=== PATIENT | male | born 1935 | race Caucasian/White ===

== ENCOUNTER 2016-12-08 05:29 | Day surgery (SDC) | payer MEDICARE ==
[2016-12-08] VITALS (19 sets, daily range): BP systolic 100–121; BP diastolic 51–60; PULSE 58–76; RESP 12–16; TEMP 97–98.1; O2SAT 94–100; Ht 193 cm; Wt 82.5 kg
[~2016-12-08] VITALS: Ht 193 cm; Wt 82.5 kg
[~2016-12-08 05:29] MED LIST: ASPI325T PO; CARV3.12 PO; DILT120T PO; MELO-273 PO; MULT-933 PO; NITR0.4T39 SL; OMEP20CA10 PO; SIMV10TA6 PO; TAMS0.4C47 PO; VENL150C2 PO
--- OUTSIDE RECORDS SUMMARY | 2016-12-08 05:32 | XMS REPORT | Continuity of Care Document ---
Author Author [facility] Address Unknown Phone Unavailable Payers Payer name Insurance type Covered republican ID Authorization(s) Unknown Problems Condition Effective Dates (start - stop) Clinical Status Chronic maxillary sinusitis - *Acute Other and unspecified hyperlipidemia - *Chronic Unspecified essential hypertension - *Chronic Depressive disorder, not elsewhere classified - *Chronic Throat pain - *Acute Routine Medical Exam - Routine Sinusitis, Acute - *Acute Headache - *Acute Pain in joint involving multiple sites - *Acute BPH - *Acute Nocturia - *Acute OTHER ABNORMAL GLUCOSE - *Acute Screening for malignant neoplasms of the prostate - *Routine Depressive disorder, not elsewhere classified - *Acute Mixed hyperlipidemia - *Acute Benign essential hypertension - *Chronic OTHER ABNORMAL GLUCOSE - *Acute Routine Medical Exam - *Routine OTHER ABNORMAL GLUCOSE - *Acute Headache - *Acute Pain in joint involving ankle and foot - *Acute H. pylori infection - *Acute Unspecified pruritic disorder - *Acute Syncope and collapse - *Acute Dysuria - *Acute Routine general medical examination at a health care facility - *Routine Pain in joint involving lower leg - *Acute Other and unspecified hyperlipidemia - *Acute Pain in joint involving multiple sites - *Acute Screening for malignant neoplasms of the prostate - *Routine NEED FOR PROPHYLACTIC VACCINATION AND INOCULATION, OTHER VIRAL DISEASES - Abrasion or friction burn of foot and toe(s), without mention of infection Dec - *Acute Contusion of toe - *Acute Sleep Apnea - *Acute Cervicalgia - *Acute Laceration - *Acute Open wound of foot except toe(s) alone, without mention of complication - *Acute Pain in joint involving lower leg - *Acute Dizziness - *Acute Influenza Vaccine - *Routine Knee injury - *Acute Acute maxillary sinusitis - *Acute Headache - *Acute Unspecified disorder of male genital organs - *Acute Regional enteritis of unspecified site - *Acute Sprain and strain of unspecified site of hip and t - *Acute Influenza Vaccine - Headache - *Acute Nonspecific abnormal results of function study of thyroid - * Acute Headache - *Acute Pain in joint involving lower leg - *Acute Abdominal pain, right lower quadrant - *Acute NEED FOR PROPHYLACTIC VACCINATION WITH COMBINED [id number] ( DTP) (DTAP) VACCINE - - Family History Family Member Diagnosis Age At Onset Status Family h/o (Unknown) Arthritis Yes Family h/o (Unknown) Diabetes Yes Sister (Alive) Cancer -colon Yes Family h/o (Unknown) Alzheimer's Disease Yes Social History Social History Element Description Quantity Unknown Allergies, Adverse Reactions, Alerts Substance Reaction Severity Status SULFANILAMIDE Unknown Medications Medication Instructions Dosage Effective Dates (start - stop) Status Zithromax Z-Andrew 250 mg tablet take 2 tablet (500MG) by ORAL route every day for 1 day then 1 tablet (250 mg) by oral route once daily for 4 days 500 MG - No Longer Active Cartia XT 120 mg capsule,extended release take 1 capsule (120MG) by ORAL route every day 120 MG - Active aspirin 325 mg tablet take 1 by Oral route every other day. 0 - Active take 1 tablet by ORAL route every day with food 0 - Active VITAMIN A (unknown strength) take 1 capsule by ORAL route every day - Active VITAMIN C (unknown strength) take 6 by Oral route every day - Active Vitamin B Complex tablet take 1 Tablet by Oral route every day 0 2008 - Active SAW PALMETTO (unknown strength) - Active Anusol-HC 2.5 % rectal cream apply by TOPICAL route 1 - 2 times every day to the affected area(s) 0 - Active promethazine-codeine 6.25 mg-10 mg/5 mL syrup 5-10 cc q 6 hours poprn cough - Active omeprazole 20 mg capsule,delayed release take 2 caps daily - Active Effexor XR 150 mg capsule,extended release take 1 capsule (150MG) by ORAL route every day 150 MG - Active simvastatin 20 mg tablet take 1 tablet (20MG) by ORAL route every day in the evening 20 MG - Active Flomax 0.4 mg capsule take 1 capsule (0.4MG) by ORAL route every day at bedtime 0.4 MG - Active Immunizations Vaccine Date Status Comments Zoster completed Fluzone HD 0.5 completed Flu (split) (3 yrs or older) completed flu (split) (3 yrs or older) completed Tdap completed flu (split) (3 yrs or older) completed Zoster completed Results Test Name Date and Time Measure Units Reference Range Abnormal Flag Comments Unknown Vital Signs Date / Time: Height Weight Pulse Rate Blood Pressure Temperature /15:01:00 76.00 in 189.00 lbs 65 /min 130/74 mm[Hg] 97.5 F Procedures Procedure Date Unknown Encounters Encounter Location Date Patient Visit [facility] Patient Visit [facility] Patient Visit [facility] Patient Visit [facility] Patient Visit [facility] Patient Visit [facility] Patient Visit [facility] Patient Visit [facility] Patient [facility] Patient [facility] Patient [facility] Patient [facility] Patient [facility] Patient [facility] Patient [facility] Patient [facility] Patient [facility] Patient [facility] Patient [facility] Patient [facility] Patient [facility] Patient [facility] Patient [facility] Patient [facility] Patient [facility] Patient [facility] Patient Visit [facility] Patient Visit [facility] Patient Visit [facility] Patient Visit [facility] Advance Directives Directive Effective Date Unknown
--- OUTSIDE RECORDS SUMMARY | 2016-12-08 05:32 | XMS REPORT | Referral Summary ---
Author Author [facility] Organization [facility] Address Unknown Phone Unavailable Care Team Providers Care Sales Advisory Manager Name Role Phone Rayray Bruno Primary Care Physician [phone] Encounter VC Date(s): 03/29/16 - 03/29/16 [facility] [address], [place] [address] Discharge Disposition: 01-Home or Self Care Attending Physician: Cesar Bruno MD Admitting Physician: Cesar Bruno MD Vital Signs Most recent to 1 oldest [Reference Range]: Peripheral Pulse 80 bpm Rate [60-100 bpm] (03/29/16 1:38 PM) Blood Pressure 100/50 mmHg [90-140/60-90 mmHg] (03/29/16 1:38 PM) SpO2 98 % (03/29/16 1:38 PM) Problem List Condition Effective Dates Status Health Status Informant Arthritis(Confirmed) Active 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) Depression(Confirmed Active ) Dysrhythmias(Confirm Active ed) Essential Active hypertension (disorder)(Confirmed ) GERD(Confirmed) Active Hyperlipidemia(Confi Active rmed) Hypertension(Confirm Active ed) Irritable bowel Active syndrome(Confirmed) Sarcoidosis(Confirme Active d) Skin Active cancer(Confirmed) TMJ Active syndrome(Confirmed) WPW(Confirmed) Active Allergies, Adverse Reactions, Alerts Substance Reaction Severity Status sulfamethoxazole Adverse Reaction Active sulfanilamide topical Active Medications Cartia XT 240 mg/24 hours oral capsule, extended release 0 Refill(s) Start Date: 04/16/14 Status: Ordered Mobic 7.5 mg oral tablet 7.5 mg 1 tabs, Oral, Daily, # 30 tabs, 2 Refill(s), called to pharmacy (Rx), 1 tabs Oral Daily Start Date: 01/20/16 Status: Ordered Nitrostat 0.4 mg sublingual tablet 1 tabs, SubLingual, q5min, as needed for chest pain, # 100 tabs, 0 Refill(s) Start Date: 04/16/14 Status: Ordered omeprazole 20 mg oral delayed release tablet 40 mg 2 tabs, Oral, Daily, X 90 days, # 180 tabs, 3 Refill(s), Pharmacy: [facility], 2 tabs Oral Daily,x90 days Start Date: 08/13/15 Stop Date: 08/07/16 Status: Ordered tamsulosin 0.4 mg oral capsule See Instructions, TAKE ONE CAPSULE BY MOUTH AT BEDTIME, # 90 Each, 3 Refill(s), Pharmacy: [facility], TAKE ONE CAPSULE BY MOUTH AT BEDTIME Start Date: 08/13/15 Status: Ordered venlafaxine 150 mg oral tablet, extended release 150 mg 1 tabs, Oral, Daily, # 30 tabs, 0 Refill(s), Pharmacy: [facility], 1 tabs Oral Daily Start Date: 01/16/16 Status: Ordered Zocor 20 mg oral tablet See Instructions, TAKE 1 TABLET BY MOUTH EVERY DAY IN THE EVENING, # 90 Each, 3 Refill(s), Pharmacy: [facility], TAKE 1 TABLET BY MOUTH EVERY DAY IN THE EVENING Start Date: 08/13/15 Status: Ordered Results No data available for this section Immunizations Vaccine Date Refusal Reason tetanus/diphth/pertuss (Tdap) adult/adol 07/23/11 influenza virus vaccine, inactivated 06/12/15 influenza virus vaccine, inactivated1 07/01/14 influenza virus vaccine, live 07/11/13 influenza virus vaccine, live 06/28/12 influenza virus vaccine, live 07/23/11 influenza virus vaccine, live 06/05/10 zoster vaccine live 08/27/10 zoster vaccine live 02/04/09 1Result Comment: [07/01/2014] see scanned document, high dose Procedures Procedure Date Related Diagnosis Body Site Colonoscopy 04/26/11 Partial thyroidectomy 1975 Social History Social History Type Response Smoking Status Never smoker Assessment and Plan Extracted from: Title: Ambulatory Patient Education Author: Mitzi Johnson Date: [id number] Shingles Shingles is an infection that causes a painful skin rash and fluid-filled blisters. Shingles is caused by the same virus that causes chickenpox. Shingles only develops in people who: Have had chickenpox. Have gotten the chickenpox vaccine. (This is rare.) The first symptoms of shingles may be itching, tingling, or pain in an area on your skin. A rash will follow in a few days or weeks. The rash is usually on one side of the body in a bandlike or beltlike pattern. Over time, the rash turns into fluid-filled blisters that break open, scab over, and dry up. Medicines may: Help you manage pain. Help you recover more quickly. Help to prevent long-term problems. HOME CARE Medicines Take medicines only as told by your doctor. Apply an anti-itch or numbing cream to the affected area as told by your doctor. Blister and Rash Care Take a cool bath or put cool compresses on the area of the rash or blisters as told by your doctor. This may help with pain and itching. Keep your rash covered with a loose bandage (dressing). Wear loose- fitting clothing. Keep your rash and blisters clean with mild soap and cool water or as told by your doctor. Check your rash every day for signs of infection. These include redness, swelling, and pain that lasts or gets worse. Do not pick your blisters. Do not scratch your rash. General Instructions Rest as told by your doctor. Keep all follow-up visits as told by your doctor. This is important. Until your blisters scab over, your infection can cause chickenpox in people who have never had it or been vaccinated against it. To prevent this from happening, avoid touching other people or being around other people, especially: Babies. women. Children who have eczema. Elderly people who have transplants. People who have chronic illnesses, such as leukemia or AIDS. GET HELP IF: Your pain does not get better with medicine. Your pain does not get better after the rash heals. Your rash looks infected. Signs of infection include: Redness. Swelling. Pain that lasts or gets worse. GET HELP RIGHT AWAY IF: The rash is on your face or nose. You have pain in your face, pain around your eye area, or loss of feeling on one side of your face. You have ear pain or you have ringing in your ear. You have loss of taste. Your condition gets worse. This information is not intended to replace advice given to you by your health care provider. Make sure you discuss any questions you have with your health care provider. Document Released: 02/07/2009 Document Revised: 09/12/2015 Document Reviewed: [facility] Patient Information 2016 [employer], [facility]. No follow up information was provided.
--- OUTSIDE RECORDS SUMMARY | 2016-12-08 05:32 | XMS REPORT | Referral Summary ---
Author Author [facility] Organization [facility] Address Unknown Phone Unavailable Care Team Providers Care Manufacturing Helper Name Role Phone Rayray Bruno Primary Care Physician [phone] Encounter VC Date(s): 01/28/15 - 01/28/15 [facility] [address] [address]- Discharge Diagnosis: Hemorrhoid Discharge Diagnosis: Lump of right wrist Discharge Disposition: 01-Home or Self Care Attending Physician: Cesar Bruno MD Admitting Physician: Cesar Bruno MD Vital Signs Most recent to 1 oldest [Reference Range]: Peripheral Pulse 69 bpm Rate [60-100 bpm] (01/28/15 3:33 PM) Blood Pressure 100/70 mmHg [90-140/60-90 mmHg] (01/28/15 3:33 PM) SpO2 98 % (01/28/15 3:33 PM) Problem List Condition Effective Dates Status [...] Adverse Reaction Active sulfanilamide topical Active Medications betamethasone valerate 0.1% topical cream 1 bianca, Topical, BID, # 90 g, 2 Refill(s), Pharmacy: [facility] [id number] Start Date: 04/17/14 Stop Date: 07/16/19 Status: Ordered Cartia XT 240 mg/24 hours oral capsule, extended release 0 Refill(s) Start Date: 04/16/14 Status: Ordered Nitrostat 0.4 mg sublingual tablet 1 tabs, SubLingual, q5min, as needed for chest pain, # 100 tabs, 0 Refill(s) Start Date: 04/16/14 Status: Ordered omeprazole 20 mg oral delayed release tablet 40 mg 2 tabs, Oral, Daily, # 180 tabs, 11 Refill(s), Pharmacy: [facility]/pharmacy # [id number], 2 tabs Oral Daily Start Date: 06/02/15 Status: Ordered tamsulosin 0.4 mg oral capsule See Instructions, TAKE ONE CAPSULE BY MOUTH AT BEDTIME, # 30 caps, 5 Refill(s), eRx: [facility]/pharmacy #[id number], TAKE ONE CAPSULE BY MOUTH AT BEDTIME Start Date: 07/28/15 Status: Ordered venlafaxine 150 mg oral capsule, extended release See Instructions, TAKE ONE CAPSULE BY MOUTH EVERY DAY, # 90 caps, 2 Refill(s), eRx: [facility]/pharmacy #[id number], TAKE ONE CAPSULE BY MOUTH EVERY DAY Start Date: 05/14/15 Status: Ordered Zocor 20 mg oral tablet See Instructions, TAKE 1 TABLET BY MOUTH EVERY DAY IN THE EVENING, # 90 tabs, 2 Refill(s), eRx: [facility]/pharmacy #[id number], TAKE 1 TABLET BY MOUTH EVERY DAY IN THE EVENING Start Date: 04/30/15 Status: Ordered Results No data available for [...] Procedures Procedure Date Related Diagnosis Body Site Partial thyroidectomy 1975 Social History Social History Type Response Smoking Status Never smoker Assessment and Plan Extracted from: Title: Office Visit Note Author: Cesar Bruno MD Date: 01/28/15 Assessment/Plan 1.Hemorrhoid 2.Lump of right wrist no action needed beyond continuing on current plan
--- OUTSIDE RECORDS SUMMARY | 2016-12-08 05:32 | XMS REPORT | Referral Summary ---
Author Organization Unknown Address Unknown Phone Unavailable Care Team Providers Care Tour Production Supervisor Name Role Phone Rayray Bruno Primary Care Physician [phone] Encounter VC Date(s): 10/17/14 - 10/17/14 [facility], [facility], [facility], PT [address], [place] [address] Discharge Disposition: Home or Self Care Attending Physician: Harsh Rome PT Admitting Physician: Harsh Rome PT Referring Physician: Cesar Bruno MD Vital Signs No data available for this section Problem List Condition Effective Dates Status Health [...] BID, # 90 g, 2 Refill(s), Pharmacy: [facility] [id number] Start Date: 04/17/14 Stop Date: 07/16/19 Status: Ordered Cartia XT 240 mg/24 hours oral capsule, extended release 0 Refill(s) Start Date: 04/16/14 Status: Ordered Nitrostat 0.4 mg sublingual tablet 1 tabs, SubLingual, q5min, as needed for chest pain, # 100 tabs, 0 Refill(s) Start Date: 04/16/14 Status: Ordered omeprazole 20 mg oral delayed release capsule 2 caps, Oral, Daily, # 180 caps, 0 Refill(s), Pharmacy: [facility]/pharmacy #[id number], 2 caps Oral Daily Start Date: 09/16/14 Status: Ordered Proctosol-HC 2.5% rectal cream with applicator 1 bianca, Rectal, BID, # 30 g, 3 Refill(s), Pharmacy: [id number] Start Date: 04/17/14 Stop Date: 07/16/19 Status: Ordered Promethazine VC 6.25 mg-5 mg/5 mL oral syrup 5 mL, Oral, q6hr, # 120 mL, 0 Refill(s), called to pharmacy (Rx) Start Date: 07/26/14 Status: Ordered Promethazine VC with Codeine oral syrup 5 mL, Oral, q6hr, as needed for cough, Called in the pharmacy on 09-02-14, # 120 mL, 0 Refill(s) Special Instructions: Called in the pharmacy on 09-02-14 Start Date: 09/02/14 Stop Date: 08/16/15 Status: Ordered simvastatin 20 mg oral tablet 0 Refill(s) Start Date: 04/16/14 Status: Ordered tamsulosin 0.4 mg oral capsule 0 Refill(s) Start Date: 04/16/14 Status: Ordered venlafaxine 150 mg oral capsule, extended release 1 caps, Oral, Daily, # 90 caps, 0 Refill(s), [id number], 1 caps Oral Daily Start Date: 09/16/14 Status: Ordered Results No data available for this section Immunizations Vaccine Date Refusal Reason tetanus/diphth/pertuss (Tdap) adult/adol 07/23/11 influenza virus vaccine, inactivated1 07/01/14 influenza virus vaccine, live 07/11/13 influenza virus vaccine, live 06/28/12 influenza virus vaccine, live 07/23/11 influenza virus vaccine, live 06/05/10 zoster vaccine live 08/27/10 zoster vaccine live 02/04/09 1Result Comment: [07/01/2014] see scanned document, high dose Procedures Procedure Date Related Diagnosis Body Site Partial thyroidectomy 1976 Social History Social History Type Response Smoking Status Never smoker Assessment and Plan No data available for this section
--- OUTSIDE RECORDS SUMMARY | 2016-12-08 05:33 | XMS REPORT | Referral Summary ---
Author Author [facility] Organization [facility] Address Unknown Phone Unavailable Care Team Providers Care Professor Of Vegetable Science Name Role Phone Rayray Bruno Primary Care Physician [phone] Encounter VC Date(s): 06/12/15 - 06/12/15 [facility] [address] [address] Discharge Diagnosis: Visit for wound care Discharge Diagnosis: Visit for suture removal Discharge Disposition: 01-Home or Self Care Attending Physician: Cesar Bruno MD Admitting Physician: Cesar Bruno MD Vital Signs Most recent to 1 oldest [Reference Range]: Peripheral Pulse 73 bpm Rate [60-100 bpm] (06/12/15 10:48 AM) Blood Pressure 118/80 mmHg [90-140/60-90 mmHg] (06/12/15 10:48 AM) SpO2 96 % (06/12/15 10:48 AM) Problem List Condition Effective Dates Status Health [...] BID, # 90 g, 2 Refill(s), Pharmacy: [id number] Start Date: 04/17/14 Stop Date: 11/11/19 Status: Ordered Cartia XT 240 mg/24 hours oral capsule, extended release 0 Refill(s) Start Date: 04/16/14 Status: Ordered Nitrostat 0.4 mg sublingual tablet 1 tabs, SubLingual, q5min, as needed for chest pain, # 100 tabs, 0 Refill(s) Start Date: 04/16/14 Status: Ordered omeprazole 20 mg oral delayed release tablet 40 mg 2 tabs, Oral, Daily, # 180 tabs, 11 Refill(s), Pharmacy: [facility]/pharmacy # [id number], 2 tabs Oral Daily Start Date: 06/02/15 Status: Ordered tamsulosin 0.4 mg oral capsule See Instructions, TAKE ONE CAPSULE BY MOUTH AT BEDTIME, # 30 caps, 2 Refill(s), eRx: [facility]/pharmacy #[id number], TAKE ONE CAPSULE BY MOUTH AT BEDTIME Start Date: 05/01/15 Status: Ordered venlafaxine 150 mg oral capsule, extended release See Instructions, TAKE ONE CAPSULE BY MOUTH EVERY DAY, # 90 caps, 2 Refill(s), eRx: [facility]/pharmacy #[id number], TAKE ONE CAPSULE BY MOUTH EVERY DAY Start Date: 05/14/15 Status: Ordered Zocor 20 mg oral tablet See Instructions, TAKE 1 TABLET BY MOUTH EVERY DAY IN THE EVENING, # 90 tabs, 2 Refill(s), eRx: [facility]/pharmacy #[id number], TAKE 1 TABLET BY MOUTH EVERY DAY [...] Extracted from: Title: Ambulatory Patient Education Author: Cesar Bruno MD Date: 06/12/15 Family Medicine Wound Care Wound care helps prevent pain and infection. You may need a tetanus shot if: You cannot remember when you had your last tetanus shot. You have never had a tetanus shot. The injury broke your skin. If you need a tetanus shot and you choose not to have one, you may get tetanus. Sickness from tetanus can be serious. HOME CARE Only take medicine as told by your doctor. Clean the wound daily with mild soap and water. Change any bandages (dressings) as told by your doctor. Put medicated cream and a bandage on the wound as told by your doctor. Change the bandage if it gets wet, dirty, or starts to smell. Take showers. Do not take baths, swim, or do anything that puts your wound under water. Rest and raise (elevate) the wound until the pain and puffiness (swelling) are better. Keep all doctor visits as told. GET HELP RIGHT AWAY IF: Yellowish-white fluid (pus) comes from the wound. Medicine does not lessen your pain. There is a red streak going away from the wound. You have a fever. MAKE SURE YOU: Understand these instructions. Will watch your condition. Will get help right away if you are not doing well or get worse. Document Released: 05/31/2009 Document Revised: 11/13/2012 Document Reviewed: [employer] Patient Information 2015 [employer]. This information is not intended to replace advice given to you by your health care provider. Make sure you discuss any questions you have with your health care provider. No follow up information was provided. Extracted from: Title: Office Visit Note Author: Cesar Bruno MD Date: 06/12/15 Assessment/Plan 1.Visit for wound care stitches were removed and steri strips were placed a gauze wrap was applied he will follow up in 1 week. Need for influenza vaccination 65 influenza vaccine was given today Ordered: influenza virus vaccine, inactivated, 0.5 mL, IntraMuscular, Once, First Dose: 06/12/15 11:10:00 CDT, Stop Date: 06/12/15 11:10:00 CDT
--- OUTSIDE RECORDS SUMMARY | 2016-12-08 05:33 | XMS REPORT | Referral Summary ---
Author Author [facility] Organization [facility] Address Unknown Phone Unavailable Care Team Providers Care Collateral Analyst Name Role Phone Rayray Bruno Primary Care Physician [phone] Encounter VC Date(s): 06/03/15 - 06/03/15 [facility] [address] [address]- Discharge Diagnosis: Skin cyst Discharge Disposition: 01-Home or Self Care Attending Physician: Cesar Bruno MD Admitting Physician: Cesar Bruno MD Vital Signs Most recent to 1 oldest [Reference Range]: Peripheral Pulse 76 bpm Rate [60-100 bpm] (06/03/15 1:38 PM) Blood Pressure 110/70 mmHg [90-140/60-90 mmHg] (06/03/15 1:38 PM) Problem List Condition Effective Dates [...] BID, # 90 g, 2 Refill(s), Pharmacy: [facility] [id number] Start Date: 04/17/14 Stop Date: 07/16/19 Status: [...] Daily, # 180 tabs, 11 Refill(s), Pharmacy: [facility]/pharmacy # [id number], 2 tabs Oral Daily Start Date: 06/02/15 Status: Ordered tamsulosin 0.4 mg oral capsule See Instructions, TAKE ONE CAPSULE BY MOUTH AT BEDTIME, # 30 caps, 2 Refill(s), eRx: [facility]/pharmacy #[id number], TAKE ONE CAPSULE BY MOUTH AT BEDTIME Start Date: 05/01/15 Status: Ordered venlafaxine 150 mg oral capsule, extended release See Instructions, TAKE ONE CAPSULE BY MOUTH EVERY DAY, # 90 caps, 2 Refill(s), eRx: [facility]/pharmacy #[id number], TAKE ONE CAPSULE BY MOUTH EVERY DAY Start Date: 05/14/15 Status: Ordered Zocor 20 mg oral tablet See Instructions, TAKE 1 TABLET BY MOUTH EVERY DAY IN THE EVENING, # 90 tabs, 2 Refill(s), eRx: [facility]/pharmacy #[id number], TAKE 1 TABLET BY MOUTH EVERY DAY [...]
--- OUTSIDE RECORDS SUMMARY | 2016-12-08 05:33 | XMS REPORT | Referral Summary ---
Author Author [facility] Organization [facility] Address Unknown Phone Unavailable Care Team Providers Care Applications Processor Name Role Phone Rayray Bruno Primary Care Physician [phone] Encounter VC Date(s): 06/03/15 - 06/03/15 [facility] [address] [address]- Discharge Diagnosis: Skin cyst Discharge Disposition: 01-Home [...] Oral, Daily, # 30 tabs, 2 Refill(s), Pharmacy: [facility], 1 tabs Oral Daily Start Date: 10/17/15 Status: Ordered Nitrostat 0.4 mg sublingual tablet 1 tabs, SubLingual, q5min, as needed for chest pain, # 100 tabs, 0 Refill(s) Start Date: 04/16/14 Status: Ordered omeprazole 20 mg oral delayed release tablet 40 mg 2 tabs, Oral, Daily, X 90 days, # 180 tabs, 3 Refill(s), Pharmacy: [facility], 2 tabs Oral Daily,x90 days Start Date: 08/13/15 Stop Date: 08/07/16 Status: Ordered tamsulosin 0.4 mg oral capsule See Instructions, TAKE ONE CAPSULE BY MOUTH AT BEDTIME, # 90 Each, 3 Refill(s), Pharmacy: [facility], TAKE ONE CAPSULE BY MOUTH AT BEDTIME Start Date: 08/13/15 Status: Ordered venlafaxine 150 mg oral capsule, extended release See Instructions, TAKE ONE CAPSULE BY MOUTH EVERY DAY, # 90 Each, 3 Refill(s), Pharmacy: [facility], TAKE ONE CAPSULE BY MOUTH EVERY DAY Start Date: 08/13/15 Status: Ordered Zocor 20 mg oral tablet See Instructions, TAKE 1 TABLET BY MOUTH EVERY DAY IN THE EVENING, # 90 Each, 3 Refill(s), Pharmacy: [facility], TAKE 1 TABLET BY [...] Procedures Procedure Date Related Diagnosis Body Site Excision, benign lesion including margins, 06/03/15 except skin tag (unless listed elsewhere), trunk, arms or legs; excised diameter 0.5 cm or less Excision, benign lesion including margins, 06/03/15 except skin tag (unless listed elsewhere), trunk, arms or legs; excised diameter 0.5 cm or less Excision, benign lesion including margins, 06/03/15 except skin tag (unless listed elsewhere), trunk, arms or legs; excised diameter 0.5 cm or less Partial thyroidectomy 1976 Social History Social History Type Response Smoking Status Never smoker Assessment and Plan Extracted from: Title: Ambulatory Patient Education Author: Mitzi Johnson MA Date: Family [facility] Epidermal Cyst An epidermal cyst is usually a small, painless lump under the skin. Cysts often occur on the face, neck, stomach, chest, or genitals. The cyst may be filled with a bad smelling paste. Do not pop your cyst. Popping the cyst can cause pain and puffiness (swelling). HOME CARE Only take medicines as told by your doctor. Take your medicine (antibiotics) as told. Finish it even if you start to feel better. GET HELP RIGHT AWAY IF: Your cyst is tender, red, or puffy. You are not getting better, or you are getting worse. You have any questions or concerns. MAKE SURE YOU: Understand these instructions. Will watch your condition. Will get help right away if you are not doing well or get worse. Document Released: 09/29/2005 Document Revised: 02/20/2013 Document Reviewed: ExitCare Patient Information 2015 [place]. This information is not intended to replace advice given to you by your health care provider. Make sure you discuss any questions you have with your health care provider. No follow up information was provided. Extracted from: Title: Office Visit Note Author: Cesar Bruno MD Date: 06/03/15 Assessment/Plan 1.Skin cyst the area was cleaned with hibiclens and the area draped with sterile towels. 1 % lidocaine was injected into the area and 15 blade scalpel was used to make the 4cm incision. Blunt and sharp dissection was carried out until the cyst was isolated.The cyst was completely excised and cautery used to stop bleeding. the superior aspect of the wound continued to bleed despite cautery and pressure. a 40 nylon suture was placed through the skin and SC tissue and this eventually limited bleeding to a minimal amount . . 5more 4/0 nylon sutureswere placed to close the wound, 3 were vertical mattress and 2 simple. A bandage was used to wrap the area after dressing with mupirocin and telfa .He will return in in 9 days to have sutures removed.he wll call if any bleeding, development of hematoma or signs of infection Cyst was sent to pathology
--- OUTSIDE RECORDS SUMMARY | 2016-12-08 05:33 | XMS REPORT | Referral Summary ---
Author Author [facility] Organization [facility] Address Unknown Phone Unavailable Care Team Providers Care Tenter Frame Operator Name Role Phone Rayray Bruno Primary Care Physician [phone] Encounter VC Date(s): 01/27/16 - 01/27/16 [facility] [address], [place] [address] Discharge Disposition: 01-Home or Self Care Attending Physician: Cesar Bruno MD Admitting Physician: Cesar Bruno MD Vital Signs Most recent to 1 oldest [Reference Range]: Peripheral Pulse 79 bpm Rate [60-100 bpm] (01/27/16 9:15 AM) Blood Pressure 106/68 mmHg [90-140/60-90 mmHg] (01/27/16 9:15 AM) Mean Arterial 81 mmHg Pressure, Cuff (01/27/16 9:15 AM) SpO2 100 % (01/27/16 9:15 AM) Problem List Condition Effective Dates Status [...] days, # 180 tabs, 3 Refill(s), Pharmacy: [facility], 2 tabs Oral Daily,x90 days Start Date: 08/13/15 Stop Date: 08/07/16 Status: Ordered tamsulosin 0.4 mg oral capsule See Instructions, TAKE ONE CAPSULE BY MOUTH AT BEDTIME, # 90 Each, 3 Refill(s), Pharmacy: [facility], TAKE ONE CAPSULE BY MOUTH AT BEDTIME Start Date: 08/13/15 Status: Ordered venlafaxine 150 mg oral tablet, extended release 150 mg 1 tabs, Oral, Daily, # 30 tabs, 0 Refill(s), Pharmacy: [facility] [id number], 1 tabs Oral Daily Start Date: 01/16/16 Status: Ordered Zocor 20 mg oral tablet See Instructions, TAKE 1 TABLET BY MOUTH EVERY DAY IN THE EVENING, # 90 Each, 3 Refill(s), Pharmacy: [facility], TAKE 1 TABLET BY MOUTH [...] Extracted from: Title: Ambulatory Patient Education Author: Cierra Benton MA Date: Family Medicine Benign Positional Vertigo Vertigo means you feel like you or your surroundings are moving when they are not. Benign positional vertigo is the most common form of vertigo. Benign means that the cause of your condition is not serious. Benign positional vertigo is more common in older adults. CAUSES Benign positional vertigo is the result of an upset in the labyrinth system. This is an area in the middle ear that helps control your balance. This may be caused by a viral infection, head injury, or repetitive motion. However, often no specific cause is found. SYMPTOMS Symptoms of benign positional vertigo occur when you move your head or eyes in different directions. Some of the symptoms may include: Loss of balance and falls. Vomiting. Blurred vision. Dizziness. Nausea. Involuntary eye movements (nystagmus). DIAGNOSIS Benign positional vertigo is usually diagnosed by physical exam. If the specific cause of your benign positional vertigo is unknown, your caregiver may perform imaging tests, such as magnetic resonance imaging (MRI) or computed tomography (CT). TREATMENT Your caregiver may recommend movements or procedures to correct the benign positional vertigo. Medicines such as meclizine, benzodiazepines, and medicines for nausea may be used to treat your symptoms. In rare cases, if your symptoms are caused by certain conditions that affect the inner ear, you may need surgery. HOME CARE INSTRUCTIONS Follow your caregiver's instructions. Move slowly. Do not make sudden body or head movements. Avoid driving. Avoid operating heavy machinery. Avoid performing any tasks that would be dangerous to you or others during a vertigo episode. Drink enough fluids to keep your urine clear or pale yellow. SEEK IMMEDIATE MEDICAL CARE IF: You develop problems with walking, weakness, numbness, or using your arms , hands, or legs. You have difficulty speaking. You develop severe headaches. Your nausea or vomiting continues or gets worse. You develop visual changes. Your family or friends notice any behavioral changes. Your condition gets worse. You have a fever. You develop a stiff neck or sensitivity to light. MAKE SURE YOU: Understand these instructions. Will watch your condition. Will get help right away if you are not doing well or get worse. This information is not intended to replace advice given to you by your health care provider. Make sure you discuss any questions you have with your health care provider. Document Released: 05/30/2007 Document Revised: 11/13/2012 Document Reviewed: ExitCare Patient Information 2015 ExitCare, [facility]. No follow up information was provided. 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 Dupuytren contracture (KIM24-LT M72.0, Working, Medical). Plan: Pt to do exercises to challenge Benign Positional Vertigo, while in a safe position. Discussed information and pt given educational material concerning this condition. Pt advised to limit activities for 3-[address] til condition improves. Pt to practice golf swings in his yard tomorrow. If condition does not improve, F/U in next week. . Patient Instructions: Benign Positional Vertigo. Orders Orders (Selected) Outpatient Orders Ordered Office Visit Level 3 Est [address]: .
--- OUTSIDE RECORDS SUMMARY | 2016-12-08 05:33 | XMS REPORT | Referral Summary ---
Author Author [facility] Organization [facility] Address Unknown Phone Unavailable Care Team Providers Care Joist Setter Name Role Phone Rayray Bruno Primary Care Physician [phone] Encounter VC Date(s): 04/24/15 - 04/24/15 [facility] [address] [address]- Discharge Diagnosis: Shoulder pain Discharge Diagnosis: Stiff neck Discharge Diagnosis: Skin lesion Discharge Disposition: 01-Home or Self Care Attending Physician: Cesar Bruno MD Admitting Physician: Cesar Bruno MD Vital Signs Most recent to 1 oldest [Reference Range]: Peripheral Pulse 63 bpm Rate [60-100 bpm] (04/24/15 3:48 PM) Blood Pressure 100/60 mmHg [90-140/60-90 mmHg] (04/24/15 3:48 PM) SpO2 98 % (04/24/15 3:48 PM) Problem List Condition Effective Dates Status [...] Daily, # 30 tabs, 2 Refill(s), Pharmacy: [facility], 1 tabs Oral Daily Start Date: 10/17/15 Status: Ordered Nitrostat 0.4 mg sublingual tablet 1 tabs, SubLingual, q5min, as needed for chest pain, # 100 tabs, 0 Refill(s) Start Date: 04/16/14 Status: Ordered omeprazole 20 mg oral delayed release tablet 40 mg 2 tabs, Oral, Daily, X 90 days, # 180 tabs, 3 Refill(s), Pharmacy: [facility], 2 tabs Oral Daily,x90 days Start Date: 08/13/15 Stop Date: 08/07/16 Status: Ordered tamsulosin 0.4 mg oral capsule See Instructions, TAKE ONE CAPSULE BY MOUTH AT BEDTIME, # 90 Each, 3 Refill(s), Pharmacy: [facility], TAKE ONE CAPSULE BY MOUTH AT BEDTIME Start Date: 08/13/15 Status: Ordered venlafaxine 150 mg oral capsule, extended release See Instructions, TAKE ONE CAPSULE BY MOUTH EVERY DAY, # 90 Each, 3 Refill(s), Pharmacy: [facility], TAKE ONE CAPSULE BY MOUTH EVERY DAY Start Date: 08/13/15 Status: Ordered Zithromax Z-Andrew 250 mg oral tablet 1 packets, Oral, Daily, as directed on package labeling, X 5 days, # 6 tabs, 0 Refill(s), Pharmacy: [id number], 1 packets Oral Daily,x5 days, Instr:as directed on package labeling Start Date: 10/31/15 Stop Date: 11/05/15 Status: Ordered Zocor 20 mg oral tablet See Instructions, TAKE 1 TABLET BY MOUTH EVERY DAY IN THE EVENING, # 90 Each, 3 Refill(s), Pharmacy: [facility], TAKE 1 TABLET [...] Visit Note Author: Cesar Bruno MD Date: 04/24/15 Assessment/Plan 1.Shoulder pain he will apply heat to both shoulder and neck and continue to do range of motion 2.Skin lesion he will make a appt to come back and get the cyst removed in the near future
--- OUTSIDE RECORDS SUMMARY | 2016-12-08 05:33 | XMS REPORT | Referral Summary ---
Author Author [facility] Organization [facility] Address Unknown Phone Unavailable Care Team Providers Care Staff Air Tactical Officer Name Role Phone Rayray Bruno Primary Care Physician [phone] Encounter Date(s): 06/12/15 - 06/12/15 [facility] [address], [place] [address] Discharge Diagnosis: Visit for wound care Discharge [...] Daily, # 30 tabs, 2 Refill(s), Pharmacy: [facility], 1 tabs Oral Daily Start Date: 10/17/15 Status: Ordered Nitrostat 0.4 mg sublingual tablet 1 tabs, SubLingual, q5min, as needed for chest pain, # 100 tabs, 0 Refill(s) Start Date: 04/16/14 Status: Ordered omeprazole 20 mg oral delayed release tablet 40 mg 2 tabs, Oral, Daily, X 90 days, # 180 tabs, 3 Refill(s), [facility], 2 tabs Oral Daily,x90 days Start Date: 08/13/15 Stop Date: 08/07/16 Status: Ordered tamsulosin 0.4 mg oral capsule See Instructions, TAKE ONE CAPSULE BY MOUTH AT BEDTIME, # 90 Each, 3 Refill(s), Pharmacy: [facility], TAKE ONE CAPSULE BY MOUTH AT BEDTIME Start Date: 08/13/15 Status: Ordered venlafaxine 150 mg oral capsule, extended release See Instructions, TAKE ONE CAPSULE BY MOUTH EVERY DAY, # 90 Each, 3 Refill(s), Pharmacy: [facility], TAKE ONE CAPSULE BY MOUTH EVERY DAY Start Date: 08/13/15 Status: Ordered Zocor 20 mg oral tablet See Instructions, TAKE 1 TABLET BY MOUTH EVERY DAY IN THE EVENING, # 90 Each, 3 Refill(s), [facility], TAKE 1 TABLET BY [...] 11/13/2012 Document Reviewed: ExitCare Patient Information 2015 [employer]. This information is not intended to replace [...]
--- OUTSIDE RECORDS SUMMARY | 2016-12-08 05:33 | XMS REPORT | Referral Summary ---
Author Author [facility] Organization [facility] Address Unknown Phone Unavailable Care Team Providers Care Investment Fund Manager Name Role Phone Rayray Bruno Primary Care Physician [phone] Encounter VC Date(s): 10/31/15 - 10/31/15 [facility] [address] [id number] Discharge Diagnosis: Arthritis, rheumatoid Discharge Diagnosis: Preventative health care Discharge Disposition: 01-Home or Self Care Attending Physician: Cesar Bruno MD Admitting Physician: Cesar Bruno MD Vital Signs Most recent to 1 oldest [Reference Range]: Peripheral Pulse 62 bpm Rate [60-100 bpm] (10/31/15 7:31 AM) Blood Pressure 120/70 mmHg [90-140/60-90 mmHg] (10/31/15 7:31 AM) SpO2 98 % (10/31/15 7:31 AM) Problem List Condition Effective Dates Status [...] Daily, # 30 tabs, 2 Refill(s), Pharmacy: [facility], 1 tabs Oral Daily Start Date: 10/17/15 Status: Ordered Nitrostat 0.4 mg sublingual tablet 1 tabs, SubLingual, q5min, as needed for chest pain, # 100 tabs, 0 Refill(s) Start Date: 04/16/14 Status: Ordered omeprazole 20 mg oral delayed release tablet 40 mg 2 tabs, Oral, Daily, X 90 days, # 180 tabs, 3 Refill(s), Pharmacy: [facility], 2 tabs Oral Daily,x90 days Start Date: 08/13/15 Stop Date: 08/07/16 Status: Ordered tamsulosin 0.4 mg oral capsule See Instructions, TAKE ONE CAPSULE BY MOUTH AT BEDTIME, # 90 Each, 3 Refill(s), Pharmacy: [facility], TAKE ONE CAPSULE BY MOUTH AT BEDTIME Start Date: 08/13/15 Status: Ordered venlafaxine 150 mg oral capsule, extended release See Instructions, TAKE ONE CAPSULE BY MOUTH EVERY DAY, # 90 Each, 3 Refill(s), Pharmacy: [facility], TAKE ONE CAPSULE BY MOUTH EVERY DAY Start Date: 08/13/15 Status: Ordered Zithromax Z-Andrew 250 mg oral tablet 1 packets, Oral, Daily, as directed on package labeling, X 5 days, # 6 tabs, 0 Refill(s), Pharmacy: [facility], 1 packets Oral Daily,x5 days, Instr:as directed on package labeling Start Date: 10/31/15 Stop Date: 11/05/15 Status: Ordered Zocor 20 mg oral tablet See Instructions, TAKE 1 TABLET BY MOUTH EVERY DAY IN THE EVENING, # 90 Each, 3 Refill(s), Pharmacy: [facility], TAKE 1 TABLET BY MOUTH EVERY DAY IN THE EVENING Start Date: 08/13/15 Status: Ordered Results Hematology Most recent to 1 oldest [Reference Range]: WBC [4.8-10.8 6.3 10*3/uL 10*3/uL] (10/31/15 8:27 AM) RBC [4.60-6.20] 4.47 *LOW* (10/31/15 8:27 AM) Hgb [14.0-18.0 13.3 gm/dL gm/dL] *LOW* (10/31/15: AM) Hct [42.0-52.0 %] 39.6 % *LOW* (10/31/15 AM) MCV [82.0-99.0 fL] 88.6 fL (10/31/15 AM) MCH [27.0-32.0 pg] 29.8 pg (10/31/15 AM) MCHC [32.0-36.0 33.6 gm/dL gm/dL] (10/31/15:27 AM) RDW [11.5-14.5 %] 14.4 % (10/31/15: AM) Platelet [150-400 276 10*3/uL 10*3/uL] (10/31/15 8:27 AM) MPV [8.8-14.8 fL] 9.2 fL (10/31/15 8: AM) Immature 0.2 % Granulocytes (10/31/15 AM) [0.0-1.0 %] Neutrophils [51-75 49 % %] *LOW* (10/31/15: AM) Lymphocytes [20-46 29 % %] (10/31/15:27 AM) Monocytes [4-11 %] 15 % *HI* (10/31/15:27 AM) Eosinophils [0-4 %] 6 % *HI* (10/31/15: AM) Basophils [0-2 %] 1 % (10/31/15:27 AM) Neutro Absolute 3.11 10*3 [1.90-7.00 10*3] (10/31/15 8:27 AM) Lymph Absolute 1.82 10*3 [0.80-3.30 10*3] (10/31/15 8:27 AM) [place] Absolute 0.92 10*3 [0.30-1.00 10*3] (10/31/15 8:27 AM) Eos Absolute 0.40 10*3 [0.00-0.50 10*3] (10/31/15 8:27 AM) Baso Absolute 0.04 10*3 [0.00-0.20 10*3] (10/31/15 AM) Sed Rate [0-15] 11 (10/31/15 AM) Chemistry Most recent to 1 oldest [Reference Range]: Sodium Lvl [135-144 142 mEq/L mEq/L] (10/31/15 AM) Potassium Lvl 4.4 mEq/L [3.5-5.2 mEq/L] (10/31/15 AM) Chloride [99-111 108 mEq/L mEq/L] (10/31/15 AM) CO2 [23-31 mEq/L] 27 mEq/L (10/31/15 AM) AGAP [3-20] 7 (10/31/15 AM) BUN [8-26 mg/dL] 14 mg/dL (10/31/15 AM) Glucose Lvl [70-99 97 mg/dL mg/dL] (10/31/15 AM) Creatinine Lvl 0.90 mg/dL [0.72-1.25 mg/dL] (10/31/15 AM) eGFR [>60 mL/min] >60 mL/min 1 (10/31/15 AM) Calcium Lvl 9.1 mg/dL [8.9-10.5 mg/dL] (10/31/15 AM) Albumin Lvl [3.4-4.8 4.0 gm/dL gm/dL] (10/31/15 AM) Total Protein 7.0 gm/dL [6.2-8.1 gm/dL] (10/31/15 AM) Globulin [1.8-4.0 3.0 gm/dL gm/dL] (10/31/15 AM) ALT [0-55 U/L] 14 U/L (10/31/15 AM) AST [5-34 U/L] 22 U/L (10/31/15 AM) Alk Phos [40-150 108 U/L U/L] (10/31/15 AM) Bili Total [0.2-1.2 0.5 mg/dL mg/dL] (10/31/15 AM) Chol [0-199 mg/dL] 152 mg/dL (10/31/15 8:27 AM) Trig [0-149 mg/dL] 41 mg/dL (10/31/15: AM) HDL [40-84 mg/dL] 56 mg/dL (10/31/15: AM) LDL [0-130 mg/dL] 88 mg/dL (10/31/15: AM) VLDL Cholesterol 8 mg/dL [0-28 mg/dL] (10/31/15: AM) Cardiac Risk 2.7 [0.0-5.7] (10/31/15 8: AM) T4 Free [0.7-1.5 0.8 ng/dL ng/dL] (10/31/15: AM) TSH with Reflex Free 2.80 T4 [0.35-4.94] (10/31/15: AM) 1Result Comment: Multiply eGFR results by 1.21 for race. Urinalysis Most recent to 1 oldest [Reference Range]: UA Color Yellow (10/31/15: AM) UA Appear Clear (10/31/15: AM) UA pH [5.0-8.0] 6.0 (10/31/15 8: AM) UA Leuk Est Negative [Negative] (10/31/15: AM) UA Nitrite Negative [Negative] (10/31/15: AM) UA Protein Negative [Negative] (10/31/15: AM) UA Glucose Negative [Negative] (10/31/15: AM) UA Ketones Negative [Negative] (10/31/15: AM) UA Urobilinogen 1.0 mg/dL [<1.0 mg/dL] (10/31/15 8: AM) UA Bili [Negative] Negative (10/31/15: AM) UA Blood [Negative] Negative (10/31/15: AM) UA Spec Grav 1.020 [1.003-1.030] (10/31/15 8:27 AM) Type Clean Catch (10/31/15 8: AM) UA WBC [0-4] 0-2 (2/26/16 8:27 AM) UA RBC [0-4] 0-4 (10/31/15 8:27 AM) Epithelial Cells 0-2 (10/31/15 8:27 AM) UA Hyal Cast [0-3] 1-3 (10/31/15 8:27 AM) Immunizations Vaccine Date Refusal Reason tetanus/diphth/pertuss (Tdap) [...] Patient Education Author: Cesar Bruno MD Date: Preventive Medicine Preventive Care for Adults A healthy lifestyle and preventive care can promote health and wellness. Preventive health guidelines for men include the following gavin practices: A routine yearly physical is a good way to check with your health care provider about your health and preventative screening. It is a chance to share any concerns and updates on your health and to receive a thorough exam. Visit your dentist for a routine exam and preventative care every 6 months. [place] your teeth twice a day and floss once a day. Good oral hygiene prevents tooth decay and gum disease. The frequency of eye exams is based on your age, health, family medical history, use of contact lenses, and other factors. Follow your health care provider's recommendations for frequency of eye exams. Eat a healthy diet. Foods such as vegetables, fruits, whole grains, low- fat dairy products, and lean protein foods contain the nutrients you need without too many calories. Decrease your intake of foods high in solid fats, added sugars, and salt. Eat the right amount of calories for you.Get information about a proper diet from your health care provider, if necessary. Regular physical exercise is one of the most important things you can do for your health. Most adults should get at least 150 minutes of moderate- intensity exercise (any activity that increases your heart rate and causes you to sweat) each week. In addition, most adults need muscle-strengthening exercises on 2 or more days a week. Maintain a healthy weight. The body mass index (BMI) is a screening tool to identify possible weight problems. It provides an estimate of body fat based on height and weight. Your health care provider can find your BMI and can help you achieve or maintain a healthy weight.For adults 20 years and older: A BMI below 18.5 is considered underweight. A BMI of 18.5 to 24.9 is normal. A BMI of 25 to 29.9 is considered overweight. A BMI of 30 and above is considered obese. Maintain normal blood lipids and cholesterol levels by exercising and minimizing your intake of saturated fat. Eat a balanced diet with plenty of fruit and vegetables. Blood tests for lipids and cholesterol should begin at age 20 and be repeated every 5 years. If your lipid or cholesterol levels are high, you are over 50, or you are at high risk for heart disease, you may need your cholesterol levels checked more frequently.Ongoing high lipid and cholesterol levels should be treated with medicines if diet and exercise are not working. If you smoke, find out from your health care provider how to quit. If you do not use tobacco, do not start. Lung cancer screening is recommended for adults aged 5580 years who are at high risk for developing lung cancer because of a history of smoking. A yearly low-dose CT scan of the lungs is recommended for people who have at least a 10-nvqz-wlnm history of smoking and are a current smoker or have quit within the past 15 years. A pack year of smoking is smoking an average of 1 pack of cigarettes a day for 1 year (for example: 1 pack a day for 30 years or 2 packs a day for 15 years). Yearly screening should continue until the smoker has stopped smoking for at least 15 years. Yearly screening should be stopped for people who develop a health problem that would prevent them from having lung cancer treatment. If you choose to drink alcohol, do not have more than 2 drinks per day. One drink is considered to be 12 ounces (355 mL) of beer, 5 ounces (148 mL) of wine, or 1.5 ounces (44 mL) of liquor. Avoid use of street drugs. Do not share needles with anyone. Ask for help if you need support or instructions about stopping the use of drugs. High blood pressure causes heart disease and increases the risk of stroke. Your blood pressure should be checked at least every 12 years. Ongoing high blood pressure should be treated with medicines, if weight loss and exercise are not effective. If you are 4579 years old, ask your health care provider if you should take aspirin to prevent heart disease. Diabetes screening involves taking a blood sample to check your fasting blood sugar level. This should be done once every 3 years, after age 45, if you are within normal weight and without risk factors for diabetes. Testing should be considered at a younger age or be carried out more frequently if you are overweight and have at least 1 risk factor for diabetes. Colorectal cancer can be detected and often prevented. Most routine colorectal cancer screening begins at the age of 50 and continues through age 75. However, your health care provider may recommend screening at an earlier age if you have risk factors for colon cancer. On a yearly basis, your health care provider may provide home test kits to check for hidden blood in the stool. Use of a small camera at the end of a tube to directly examine the colon (sigmoidoscopy or colonoscopy) can detect the earliest forms of colorectal cancer. Talk to your health care provider about this at age 50, when routine screening begins. Direct exam of the colon should be repeated every 510 years through age 75, unless early forms of precancerous polyps or small growths are found. People who are at an increased risk for hepatitis B should be screened for this virus. You are considered at high risk for hepatitis B if: You were born in a country where hepatitis B occurs often. Talk with your health care provider about which countries are considered high risk. Your parents were born in a high-risk country and you have not received a shot to protect against hepatitis B (hepatitis B vaccine). You have HIV or AIDS. You use needles to inject street drugs. You live with, or have sex with, someone who has hepatitis B. You are a man who has sex with other men (MSM). You get hemodialysis treatment. You take certain medicines for conditions such as cancer, organ transplantation, and autoimmune conditions. Hepatitis C blood testing is recommended for all people born from 1945 through 1965 and any individual with known risks for hepatitis C. Practice safe sex. Use condoms and avoid high-risk sexual practices to reduce the spread of sexually transmitted infections (STIs). STIs include gonorrhea, chlamydia, syphilis, trichomonas, herpes, HPV, and human immunodeficiency virus (HIV). Herpes, HIV, and HPV are viral illnesses that have no cure. They can result in disability, cancer, and . If you are a man who has sex with other men, you should be screened at least once per year for: HIV. Urethral, rectal, and pharyngeal infection of gonorrhea, chlamydia, or both. If you are at risk of being infected with HIV, it is recommended that you take a prescription medicine daily to prevent HIV infection. This is called preexposure prophylaxis (PrEP). You are considered at risk if: You are a man who has sex with other men (MSM) and have other risk factors. You are a heterosexual man, are sexually active, and are at increased risk for HIV infection. You take drugs by injection. You are sexually active with a partner who has HIV. Talk with your health care provider about whether you are at high risk of being infected with HIV. If you choose to begin PrEP, you should first be tested for HIV. You should then be tested every 3 months for as long as you are taking PrEP. A one-time screening for abdominal aortic aneurysm (AAA) and surgical repair of large AAAs by ultrasound are recommended for men ages 65 to 75 years who are current or former smokers. Healthy men should no longer receive prostate-specific antigen (PSA) blood tests as part of routine cancer screening. Talk with your health care provider about prostate cancer screening. Testicular cancer screening is not recommended for adult males who have no symptoms. Screening includes self-exam, a health care provider exam, and other screening tests. Consult with your health care provider about any symptoms you have or any concerns you have about testicular cancer. Use sunscreen. Apply sunscreen liberally and repeatedly throughout the day. You should seek shade when your shadow is shorter than you. Protect yourself by wearing long sleeves, pants, a wide-brimmed hat, and sunglasses year round, whenever you are outdoors. Once a month, do a whole-body skin exam, using a mirror to look at the skin on your back. Tell your health care provider about new moles, moles that have irregular borders, moles that are larger than a pencil eraser, or moles that have changed in shape or color. Stay current with required vaccines (immunizations). Influenza vaccine. All adults should be immunized every year. Tetanus, diphtheria, and acellular pertussis (Td, Tdap) vaccine. An adult who has not previously received Tdap or who does not know his vaccine status should receive 1 dose of Tdap. This initial dose should be followed by tetanus and diphtheria toxoids (Td) booster doses every 10 years. Adults with an unknown or incomplete history of completing a 3-dose immunization series with Td-containing vaccines should begin or complete a primary immunization series including a Tdap dose. Adults should receive a Td booster every 10 years. Varicella vaccine. An adult without evidence of immunity to varicella should receive 2 doses or a second dose if he has previously received 1 dose. Human papillomavirus (HPV) vaccine. Males aged 1121 years who have not received the vaccine previously should receive the 3-dose series. Males aged 2226 years may be immunized. Immunization is recommended through the age of 26 years for any male who has sex with males and did not get any or all doses earlier. Immunization is recommended for any person with an immunocompromised condition through the age of 26 years if he did not get any or all doses earlier. During the 3-dose series, the second dose should be obtained 48 weeks after the first dose. The third dose should be obtained 24 weeks after the first dose and 16 weeks after the second dose. Zoster vaccine. One dose is recommended for adults aged 60 years or older unless certain conditions are present. Measles, mumps, and rubella (MMR) vaccine. Adults born before 1956 generally are considered immune to measles and mumps. Adults born in 1956 or later should have 1 or more doses of MMR vaccine unless there is a contraindication to the vaccine or there is laboratory evidence of immunity to each of the three diseases. A routine second dose of MMR vaccine should be obtained at least 28 days after the first dose for students attending postsecondary schools, health care workers, or international travelers. People who received inactivated measles vaccine or an unknown type of measles vaccine during should receive 2 doses of MMR vaccine. People who received inactivated mumps vaccine or an unknown type of mumps vaccine before 1978 and are at high risk for mumps infection should consider immunization with 2 doses of MMR vaccine. Unvaccinated health care workers born before 1956 who lack laboratory evidence of measles, mumps, or rubella immunity or laboratory confirmation of disease should consider measles and mumps immunization with 2 doses of MMR vaccine or rubella immunization with 1 dose of MMR vaccine. Pneumococcal 13-valent conjugate (PCV13) vaccine. When indicated, a person who is uncertain of his immunization history and has no record of immunization should receive the PCV13 vaccine. All adults age 65 years and older should receive this vaccine. An adult aged 19 years or older who has certain medical conditions and has not been previously immunized should receive 1 dose of PCV13 vaccine. This PCV13 should be followed with a dose of pneumococcal polysaccharide (PPSV23) vaccine. The PPSV23 vaccine dose should be obtained at least 8 weeks after the dose of PCV13 vaccine. An adult aged 19 years or older who has certain medical conditions and previously received 1 or more doses of PPSV23 vaccine should receive 1 dose of PCV13. The PCV13 vaccine dose should be obtained 1 or more years after the last PPSV23 vaccine dose. Pneumococcal polysaccharide (PPSV23) vaccine. When PCV13 is also indicated, PCV13 should be obtained first. All adults aged 65 years and older should be immunized. An adult younger than age 65 years who has certain medical conditions should be immunized. Any person who resides in a group home or long -term care facility should be immunized. An adult smoker should be immunized. People with an immunocompromised condition and certain other conditions should receive both PCV13 and PPSV23 vaccines. People with human immunodeficiency virus (HIV) infection should be immunized as soon as possible after diagnosis. Immunization during chemotherapy or radiation therapy should be avoided. Routine use of PPSV23 vaccine is not recommended for [place] Indians, [place] Natives, or people younger than 65 years unless there are medical conditions that require PPSV23 vaccine. When indicated, people who have unknown immunization and have no record of immunization should receive PPSV23 vaccine. One-time revaccination 5 years after the first dose of PPSV23 is recommended for people aged 1964 years who have chronic kidney failure, nephrotic syndrome, asplenia, or immunocompromised conditions. People who received 12 doses of PPSV23 before age 65 years should receive another dose of PPSV23 vaccine at age 65 years or later if at least 5 years have passed since the previous dose. Doses of PPSV23 are not needed for people immunized with PPSV23 at or after age 65 years. Meningococcal vaccine. Adults with asplenia or persistent complement component deficiencies should receive 2 doses of quadrivalent meningococcal conjugate (MenACWY-D) vaccine. The doses should be obtained at least 2 months apart. Microbiologists working with certain meningococcal bacteria, recruits, people at risk during an outbreak, and people who travel to or live in countries with a high rate of meningitis should be immunized. A first-year college student up through age 21 years who is living in a residence [place] should receive a dose if he did not receive a dose on or after his 16th birthday. Adults who have certain high-risk conditions should receive one or more doses of vaccine. Hepatitis A vaccine. Adults who wish to be protected from this disease, have chronic liver disease, work with hepatitis A-infected animals, work in hepatitis A research labs, or travel to or work in countries with a high rate of hepatitis A should be immunized. Adults who were previously unvaccinated and who anticipate close contact with an international adoptee during the first 60 days after arrival in the [place] from a country with a high rate of hepatitis A should be immunized. Hepatitis B vaccine. Adults should be immunized if they wish to be protected from this disease, are under age 59 years and have diabetes, have chronic liver disease, have had more than one sex partner in the past 6 months, may be exposed to blood or other infectious body fluids, are household contacts or sex partners of hepatitis B positive people, are clients or workers in certain care facilities, or travel to or work in countries with a high rate of hepatitis B. Haemophilus influenzae type b (Hib) vaccine. A previously unvaccinated person with asplenia or sickle cell disease or having a scheduled splenectomy should receive 1 dose of Hib vaccine. Regardless of previous immunization, a recipient of a hematopoietic stem cell transplant should receive a 3-dose series 612 months after his successful transplant. Hib vaccine is not recommended for adults with HIV infection. Preventive Service / Frequency Ages 19 to 39 Blood pressure check. / Every 1 to 2 years. Lipid and cholesterol check. / Every 5 years beginning at age 20. Hepatitis C blood test. / For any individual with known risks for hepatitis C. Skin self-exam. / Monthly. Influenza vaccine. / Every year. Tetanus, diphtheria, and acellular pertussis (Tdap, Td) vaccine. / Consult your health care provider. 1 dose of Td every 10 years. Varicella vaccine. / Consult your health care provider. HPV vaccine. / 3 doses over 6 months, if 26 or younger. Measles, mumps, rubella (MMR) vaccine. / You need at least 1 dose of MMR if you were born in 1957 or later. You may also need a second dose. Pneumococcal 13-valent conjugate (PCV13) vaccine. / Consult your health care provider. Pneumococcal polysaccharide (PPSV23) vaccine. / 1 to 2 doses if you smoke cigarettes or if you have certain conditions. Meningococcal vaccine. / 1 dose if you are age 19 to 21 years and a first-year college student living in a residence town[place], or have one of several medical conditions. You may also need additional booster doses. Hepatitis A vaccine. / Consult your health care provider. Hepatitis B vaccine. / Consult your health care provider. Haemophilus influenzae type b (Hib) vaccine. / Consult your health care provider. Ages 40 to 64 Blood pressure check. / Every 1 to 2 years. Lipid and cholesterol check. / Every 5 years beginning at age 20. Lung cancer screening. / Every year if you are aged 5580 years and have a 11-smhm-aore history of smoking and currently smoke or have quit within the past 15 years. Yearly screening is stopped once you have quit smoking for at least 15 years or develop a health problem that would prevent you from having lung cancer treatment. Fecal occult blood test (FOBT) of stool. / Every year beginning at age 50 and continuing until age 75. You may not have to do this test if you get a colonoscopy every 10 years. Flexible sigmoidoscopy or colonoscopy. / Every 5 years for a flexible sigmoidoscopy or every 10 years for a colonoscopy beginning at age 50 and continuing until age 75. Hepatitis C blood test. / For all people born from 1945 through 1965 and any individual with known risks for hepatitis C. Skin self-exam. / Monthly. Influenza vaccine. / Every year. Tetanus, diphtheria, and acellular pertussis (Tdap/Td) vaccine. / Consult your health care provider. 1 dose of Td every 10 years. Varicella vaccine. / Consult your health care provider. Zoster vaccine. / 1 dose for adults aged 60 years or older. Measles, mumps, rubella (MMR) vaccine. / You need at least 1 dose of MMR if you were born in 1957 or later. You may also need a second dose. Pneumococcal 13-valent conjugate (PCV13) vaccine. / Consult your health care provider. Pneumococcal polysaccharide (PPSV23) vaccine. / 1 to 2 doses if you smoke cigarettes or if you have certain conditions. Meningococcal vaccine. / Consult your health care provider. Hepatitis A vaccine. / Consult your health care provider. Hepatitis B vaccine. / Consult your health care provider. Haemophilus influenzae type b (Hib) vaccine. / Consult your health care provider. Ages 65 and over Blood pressure check. / Every 1 to 2 years. Lipid and cholesterol check./ Every 5 years beginning at age 20. Lung cancer screening. / Every year if you are aged 5580 years and have a 53-rzfl-choe history of smoking and currently smoke or have quit within the past 15 years. Yearly screening is stopped once you have quit smoking for at least 15 years or develop a health problem that would prevent you from having lung cancer treatment. Fecal occult blood test (FOBT) of stool. / Every year beginning at age 50 and continuing until age 75. You may not have to do this test if you get a colonoscopy every 10 years. Flexible sigmoidoscopy or colonoscopy. / Every 5 years for a flexible sigmoidoscopy or every 10 years for a colonoscopy beginning at age 50 and continuing until age 75. Hepatitis C blood test. / For all people born from 1945 through 1965 and any individual with known risks for hepatitis C. Abdominal aortic aneurysm (AAA) screening. / A one-time screening for ages 65 to 75 years who are current or former smokers. Skin self-exam. / Monthly. Influenza vaccine. / Every year. Tetanus, diphtheria, and acellular pertussis (Tdap/Td) vaccine. / 1 dose of Td every 10 years. Varicella vaccine. / Consult your health care provider. Zoster vaccine. / 1 dose for adults aged 60 years or older. Pneumococcal 13-valent conjugate (PCV13) vaccine. / 1 dose for all adults aged 65 years and older. Pneumococcal polysaccharide (PPSV23) vaccine. / 1 dose for all adults aged 65 years and older. Meningococcal vaccine. / Consult your health care provider. Hepatitis A vaccine. / Consult your health care provider. Hepatitis B vaccine. / Consult your health care provider. Haemophilus influenzae type b (Hib) vaccine. / Consult your health care provider. Family history and personal history of risk and conditions may change your health care provider's recommendations. This information is not intended to replace advice given to you by your health care provider. Make sure you discuss any questions you have with your health care provider. Document Released: 10/18/2002 Document Revised: 06/10/2015 Document Reviewed: ExitCare Patient Information 2015 [employer]. No follow up information was provided. Extracted from: Title: Office Visit Note Author: Cesar Bruno MD Date: 10/31/15 Assessment/Plan 1.Preventative health care pt appears healthy, but the right sided abd pain could be due to mobic He will hold mobic for 1-2 weeks and see if it ,makes a diffrence Ordered: CBC w/ Differential Comprehensive Metabolic Panel Free T4 Hemoglobin A1c Lipid Panel TSH with Reflex Free T4 Urinalysis Microscopic Urine Dipstick 2.Arthritis, rheumatoid Ordered: C-Reactive Protein (CRP) Rheumatoid Factor Sedimentation Rate
--- OUTSIDE RECORDS SUMMARY | 2016-12-08 05:33 | XMS REPORT | Referral Summary ---
Author Author [facility] Organization [facility] Address Unknown Phone Unavailable Care Team Providers Care Shake Splitter Name Role Phone Rayray Bruno Primary Care Physician [phone] Encounter VC Date(s): 10/16/15 - 10/16/15 [facility] [address] [address]- Discharge Diagnosis: Left shoulder pain Discharge Diagnosis: Hip pain Discharge Disposition: 01-Home or Self Care Attending Physician: Cesar Bruno MD Admitting Physician: Cesar Bruno MD Vital Signs Most recent to 1 oldest [Reference Range]: Temperature Tympanic 36.6 degC [36.6-38.1 degC] (10/16/15 10:39 AM) Peripheral Pulse 70 bpm Rate [60-100 bpm] (10/16/15 10:39 AM) Blood Pressure 106/64 mmHg [90-140/60-90 mmHg] (10/16/15 10:39 AM) SpO2 99 % (10/16/15 10:39 AM) Problem List Condition Effective Dates Status [...] BID, # 90 g, 2 Refill(s), Pharmacy: [id number] Start Date: 04/17/14 Stop Date: 07/16/19 Status: [...] days, # 180 tabs, 3 Refill(s), Pharmacy: [facility], 2 tabs Oral Daily,x90 days Start Date: 08/13/15 Stop Date: 08/07/16 Status: Ordered tamsulosin 0.4 mg oral capsule See Instructions, TAKE ONE CAPSULE BY MOUTH AT BEDTIME, # 90 Each, 3 Refill(s), Pharmacy: [facility], TAKE ONE CAPSULE BY MOUTH AT BEDTIME Start Date: 08/13/15 Status: Ordered venlafaxine 150 mg oral capsule, extended release See Instructions, TAKE ONE CAPSULE BY MOUTH EVERY DAY, # 90 Each, 3 Refill(s), Pharmacy: [facility], TAKE ONE CAPSULE BY MOUTH EVERY DAY Start Date: 08/13/15 Status: Ordered Zocor 20 mg oral tablet See Instructions, TAKE 1 TABLET BY MOUTH EVERY DAY IN THE EVENING, # 90 Each, 3 Refill(s), Pharmacy: [facility], TAKE 1 TABLET BY [...]
--- OUTSIDE RECORDS SUMMARY | 2016-12-08 05:33 | XMS REPORT | Referral Summary ---
Author Author [facility] Organization [facility] Address Unknown Phone Unavailable Care Team Providers Care Departmental Secretary Name Role Phone Rayray Bruno Primary Care Physician [phone] Encounter Date(s): 05/03/16 - 05/03/16 [facility] [address], [place] [address] Discharge Disposition: 01-Home or Self Care Attending Physician: Cesar Bruno MD Vital Signs Most recent to 1 oldest [Reference Range]: Peripheral Pulse 70 bpm Rate [60-100 bpm] (05/03/16 2:29 PM) Blood Pressure 110/56 mmHg [90-140/60-90 mmHg] (05/03/16 2:29 PM) SpO2 100 % (05/03/16 2:29 PM) Problem List Condition Effective Dates Status [...] days, # 180 tabs, 3 Refill(s), Pharmacy: [facility], 2 tabs Oral Daily,x90 days Start Date: 08/13/15 Stop Date: 08/07/16 Status: Ordered tamsulosin 0.4 mg oral capsule See Instructions, TAKE ONE CAPSULE BY MOUTH AT BEDTIME, # 90 Each, 3 Refill(s), Pharmacy: [facility], TAKE ONE CAPSULE BY MOUTH AT BEDTIME Start Date: 08/13/15 Status: Ordered venlafaxine 150 mg oral tablet, extended release 150 mg 1 tabs, Oral, Daily, # 90 tabs, 3 Refill(s), Pharmacy: [facility], 1 tabs Oral Daily Start Date: 05/03/16 Status: Ordered Zocor 20 mg oral tablet See Instructions, TAKE 1 TABLET BY MOUTH EVERY DAY IN THE EVENING, # 90 Each, 3 Refill(s), Pharmacy: [facility], TAKE 1 TABLET [...] Ambulatory Patient Education Author: Mitzi Johnson Date: Family Medicine Actinic Keratosis Actinic keratosis is a precancerous growth on the skin. This means it could develop into skin cancer if it is not treated. About 1% of actinic keratoses turn into skin cancer within a year. It is important to have all such growths removed to prevent them from developing into skin cancer. CAUSES Actinic keratosis is caused by getting too much ultraviolet (UV) radiation from the sun or other UV light sources. RISK FACTORS Factors that increase your chances of getting actinic keratosis include: Having light-colored skin and blue eyes. Having blonde or red hair. Spending a lot of time in the sun. Age. The risk of actinic keratosis increases with age. SYMPTOMS Actinic keratosis growths look like scaly, rough spots of skin. They can be as small as a pinhead or as big as a quarter. They may itch, hurt, or feel sensitive. Sometimes there is a little tag of pink or estevez skin growing off them. In some cases, actinic keratoses are easier felt than seen. They do not go away with the use of moisturizing lotions or creams. Actinic keratoses appear most often on areas of skin that get a lot of sun exposure. These areas include the: Scalp. Face. Ears. Lips. Upper back. Backs of the hands. Forearms. DIAGNOSIS Your health care provider can usually tell what is wrong by performing a physical exam. A tissue sample (biopsy) may also be taken and examined under a microscope. TREATMENT Actinic keratosis can be treated several ways. Most treatments can be done in your health care provider's office. Treatment options may include: Curettage. A tool is used to gently scrape off the growth. Cryosurgery. Liquid nitrogen is applied to the growth to freeze it. The growth eventually falls off the skin. Medicated creams, such as 5-fluorouracil or imiquimod. The medicine destroys the cells in the growth. Chemical peels. Chemicals are applied to the growth and the outer layers of skin are peeled off. Photodynamic therapy. A drug that makes your skin more sensitive to light is applied to the skin. A strong, blue light is aimed at the skin and destroys the growth. PREVENTION To prevent future sun damage: Try to avoid the sun between 10:00 a.m. and 4:00 p.m. when it is the strongest. Use a sunscreen or sunblock with SPF 30 or greater. Apply sunscreen at least 30 minutes before exposure to the sun. Always wear protective hats, clothing, and sunglasses with UV protection. Avoid medicines, herbs, and foods that increase your sensitivity to sunlight. Avoid tanning beds. HOME CARE INSTRUCTIONS If your skin was covered with a bandage, change and remove the bandage as directed by your health care provider. Keep the treated area dry as directed by your health care provider. Apply any creams as prescribed by your health care provider. Follow the directions carefully. Check your skin regularly for any changes. Visit a skin doctor (deputy director of public works) every year for a skin exam. SEEK MEDICAL CARE IF: Your skin does not heal and becomes irritated, red, or bleeds. You notice any changes or new growths on your skin. This information is not intended to replace advice given to you by your health care provider. Make sure you discuss any questions you have with your health care provider. Document Released: 11/18/2009 Document Revised: 09/12/2015 Document Reviewed: [facility] Patient Information 2016 [employer], [facility]. No follow up information was provided.
--- OUTSIDE RECORDS SUMMARY | 2016-12-08 05:33 | XMS REPORT | Continuity of Care Document ---
Author Author [facility] Organization [facility] Address Unknown Phone Unavailable Allergies Active Description Code Type Severity Reaction Onset Reported/Identified Relationship to Patient Clinical Status Yes sulfamethoxazole NKMA N/A Adverse Reaction 01/03/2014 Yes sulfanilamide topical NKMA N/A N/A 01/03/2014 Medications Problems Procedures Results Encounters ACCT No. Visit Date/Time Discharge Status Pt. Type Provider Facility Loc./Unit Complaint [id number] 10/31/2013 08:17:00 10/31/2013 23 :59:59 [facility] Outpatient [id number] 10/16/2013 14:42:00 10/16/2013 23 :59:59 [facility] Outpatient [id number] 06/26/2013 15:42:00 06/26/2013 23 :59:59 [facility] Outpatient
--- OUTSIDE RECORDS SUMMARY | 2016-12-08 05:33 | XMS REPORT | Continuity of Care Document ---
Author Author Alex ARGUETA [facility] Amb[facility] Address [address] [place] [id number] Phone Unavailable Payers Payer name Insurance type Covered constitution party ID Authorization(s) Unknown Problems Condition Effective Dates (start - stop) Clinical Status Syncope and collapse - *Acute Dysuria - *Acute Other and unspecified hyperlipidemia - *Chronic Unspecified essential hypertension - *Chronic Depressive disorder, not elsewhere classified - *Chronic Throat pain - *Acute Routine Medical Exam - Routine Sinusitis, Acute - *Acute Headache - *Acute Screening for malignant neoplasms of [...] - *Acute Unspecified pruritic disorder - *Acute Routine general medical examination at [...] Sleep Apnea - *Acute Cervicalgia - *Acute Pain in joint involving lower leg - *Acute Dizziness - *Acute Influenza Vaccine - *Routine Knee injury - *Acute Acute maxillary sinusitis - *Acute Headache - *Acute Unspecified disorder of male genital organs - *Acute Regional enteritis of unspecified site - *Acute Influenza Vaccine - Headache - *Acute Nonspecific abnormal results of function study of thyroid - * Acute Headache - *Acute Pain in joint involving lower leg - *Acute Abdominal pain, right lower quadrant - *Acute NEED FOR PROPHYLACTIC VACCINATION WITH COMBINED FACQJVENEW-YSOOQQZ-YLAOIIEKO ( DTP) (DTAP) VACCINE - - Family [...] Dosage Effective Dates (start - stop) Status Cartia XT 120 mg capsule,extended release take [...] Active SAW PALMETTO (unknown strength) - Active simvastatin 20 mg tablet take 1 tablet (20MG) by ORAL route every day in the evening 20 MG - Active Anusol-HC 2.5 % Rectal Cream apply by TOPICAL route 1 - 2 times every day to the affected area(s) 0 - Active promethazine-codeine 6.25 mg-10 mg/5 mL Syrup 5-10 cc q 6 hours poprn cough - Active Effexor XR 150 mg capsule,extended release take 1 capsule (150MG) by ORAL route every day 150 MG - Active omeprazole 20 mg capsule,delayed release take 2 caps daily - Active Immunizations Vaccine Date Status Comments Zoster completed Fluzone HD 0.5 completed Flu (split) (3 yrs or older) completed flu (split) (3 yrs or older) completed Tdap completed Zoster completed flu (split) (3 yrs or older) completed Results Test Name Date and Time Measure Units Reference Range Abnormal Flag Comments Unknown Vital Signs Date / Time: Height Weight Pulse Rate Blood Pressure Temperature /15:48:00 186.00 lbs 66 /min 114/68 mm[Hg] Procedures Procedure Date Unknown Encounters Encounter Location Date Patient Visit [facility] [place] Patient Visit [facility] [place] Patient Visit [facility] [place] Patient Visit [facility] [place] Patient [facility] [place] Patient [facility] [place] Patient [facility] [place] Patient [facility] [place] Patient [facility] [place] Patient [facility] [place] Patient [facility] [place] Patient [facility] [place] Patient [facility] [place] Patient [facility] [place] Patient [facility] [place] Patient [facility] [place] Patient [facility] [place] Patient [facility] [place] Patient [facility] [place] Patient [facility] [place] Patient [facility] [place] Patient [facility] [place] Patient [facility] [place] [facility] Patient [facility] [place] Patient Visit [facility] [place] Advance Directives Directive Effective Date Unknown
--- OUTSIDE RECORDS SUMMARY | 2016-12-08 05:33 | XMS REPORT | Continuity of Care Document ---
Author Author [facility] Address Unknown Phone Unavailable Payers Payer name Insurance type Covered constitution party ID Authorization(s) Unknown Problems Condition Effective Dates (start - stop) Clinical Status Pain in joint involving multiple sites - *Acute BPH - *Acute Nocturia - *Acute OTHER ABNORMAL GLUCOSE - *Acute Other and unspecified hyperlipidemia - [...] - *Acute Contusion of toe - *Acute Chronic maxillary sinusitis - *Acute Sleep Apnea - *Acute Cervicalgia [...] *Acute NEED FOR PROPHYLACTIC VACCINATION WITH COMBINED OILUYDPABR-NVPUDPH-NANIIUZYN ( DTP) (DTAP) VACCINE - - Family [...] Dosage Effective Dates (start - stop) Status Flomax 0.4 mg capsule take 1 capsule (0.4MG) by ORAL route every day at bedtime 0.4 MG - Active Cartia XT 120 mg capsule,extended release [...] in the evening 20 MG - Active Immunizations Vaccine Date Status [...] Height Weight Pulse Rate Blood Pressure Temperature /08:20:00 185.00 lbs 60 /min 124/70 mm[Hg] Procedures Procedure Date Unknown Encounters Encounter Location Date Patient Visit [facility] [place] Patient Visit [facility] [place] Patient Visit [facility] [place] Patient Visit [facility] [place] Patient Visit [facility] [place] Patient Visit [facility] [place] Patient Visit [facility] [place] Patient Visit [facility] [place] Patient Visit [facility] [place] Patient Visit [facility] [place] [facility] Patient Visit [facility] [place] Patient Visit [facility] [place] Patient Visit [facility] [place] Patient Visit [facility] [place] Patient [facility] [place] Patient Visit [facility] [place] Patient Visit [facility] [place] Patient Visit [facility] [place] Patient Visit [facility] [place] Patient Visit [facility] [place] Patient Visit [facility] [place] Patient Visit [facility] [place] Patient Visit [facility] [place] Patient [facility] [place] Patient [facility] [place] Patient Visit [facility] [place] Patient Visit [facility] [place] Patient Visit [facility] [place] Patient Visit [facility] [place] Advance Directives Directive Effective Date Do Not Resuscitate 10/31/2013
--- OUTSIDE RECORDS SUMMARY | 2016-12-08 05:33 | XMS REPORT | Referral Summary ---
Author Organization Unknown Address Unknown Phone Unavailable Care Team Providers Care Cuff Setter Lockstitch Name Role Phone Rayray Bruno Primary Care Physician [phone] Encounter VC Date(s): 10/10/14 - 10/10/14 [facility], [facility] [address] [place], [place] [address] Discharge Diagnosis: Hyperlipidemia Discharge Diagnosis: Screening for hypothyroidism Discharge Diagnosis: Anemia Discharge Diagnosis: Nocturia Discharge Diagnosis: Prostate cancer screening Discharge Diagnosis: Screening for diabetes mellitus Discharge Diagnosis: Arthritis, rheumatoid Discharge Disposition: Home or Self Care Attending Physician: Cesar Bruno MD Admitting Physician: Cesar Bruno MD Vital Signs Most recent to 1 oldest [Reference Range]: Peripheral Pulse 66 bpm Rate [60-100 bpm] (10/10/14 8:32 AM) Blood Pressure 102/70 mmHg [90-140/60-90 mmHg] (10/10/14 8:32 AM) Most recent to 1 oldest [Reference Range]: SpO2 99 % (10/10/14 8:32 AM) Problem List Condition Effective Dates Status [...] BID, # 90 g, 2 Refill(s), Pharmacy: [facility] [id number] Start Date: 04/17/14 Stop Date: 07/16/19 Status: [...] Daily, # 180 caps, 0 Refill(s), Pharmacy: [facility]/pharmacy #[id number], 2 caps Oral Daily Start Date: 09/16/14 Status: Ordered Proctosol-HC 2.5% rectal cream with applicator 1 bianca, Rectal, BID, # 30 g, 3 Refill(s), [id number] Start Date: 04/17/14 Stop Date: 07/16/19 Status: [...] Daily, # 90 caps, 0 Refill(s), Pharmacy: [facility]/pharmacy #[id number], 1 caps Oral Daily Start Date: 09/16/14 Status: Ordered Results Hematology Most recent to 1 oldest [Reference Range]: WBC [4.8-10.8 K/uL] 6.1 K/uL (10/10/14 10:00 AM) RBC [4.60-6.20 M/uL] 4.44 M/uL *LOW* (10/10/14 10:00 AM) Hgb [14.0-18.0 13.3 gm/dL gm/dL] *LOW* (10/10/14 10:00 AM) Hct [42.0-52.0 %] 39.3 % *LOW* (10/10/14 10:00 AM) MCV [82.0-99.0 fL] 88.5 fL (10/10/14 10:00 AM) MCH [27.0-32.0 pg] 30.0 pg (10/10/14 10:00 AM) MCHC [32.0-36.0 33.8 gm/dL gm/dL] (10/10/14 10:00 AM) RDW [11.5-14.5 %] 14.3 % (10/10/14 10:00 AM) Platelet [150-400 260 K/uL K/uL] (10/10/14 10:00 AM) MPV [8.8-14.8 fL] 9.4 fL (10/10/14 10:00 AM) Immature 0.2 % Granulocytes (10/10/14:00 AM) [0.0-1.0 %] Neutrophils [51-75 52 % %] (10/10/14 10:00 AM) Lymphocytes [20-46 32 % %] (10/10/14 10:00 AM) Monocytes [4-11 %] 10 % (10/10/14 10:00 AM) Eosinophils [0-4 %] 5 % *HI* (10/10/14 10:00 AM) Basophils [0-2 %] 1 % (10/10/14 10:00 AM) Neutro Absolute 3.13 THOUS [1.90-7.00 THOUS] (10/10/14 10:00 AM) Lymph Absolute 1.92 THOUS [0.80-3.30 THOUS] (10/10/14 10:00 AM) Bamberg Absolute 0.63 THOUS [0.30-1.00 THOUS] (10/10/14 10:00 AM) Eos Absolute 0.33 THOUS [0.00-0.50 THOUS] (10/10/14 10:00 AM) Baso Absolute 0.04 THOUS [0.00-0.20 THOUS] (10/10/14 10:00 AM) Chemistry Most recent to 1 oldest [Reference Range]: PSA (wihout Reflex 0.3 ng/mL 1 Free) [0.0-6.5 (10/10/14 10:00 AM) ng/mL] Chol [0-199 mg/dL] 151 mg/dL (10/10/14 10:00 AM) Trig [0-149 mg/dL] 55 mg/dL (10/10/14 10:00 AM) HDL [40-84 mg/dL] 52 mg/dL (10/10/14 10:00 AM) LDL [0-130 mg/dL] 88 mg/dL (10/10/14 10:00 AM) VLDL Cholesterol 11 mg/dL [0-28 mg/dL] (10/10/14 10:00 AM) Cardiac Risk 2.9 [0.0-5.7] (10/10/14 10:00 AM) TSH [0.35-4.94] 2.85 (10/10/14 10:00 AM) Hgb A1c [4.1-5.6 %] 5.5 % (10/10/14 10:00 AM) eAvg Glucose 111.2 mg/dL (10/10/14 10:00 AM) 1Result Comment: AUA PSA Best Practice Guidelines: Age-Adjusted PSA Values by Ethnic Group Age Range Asians - Caucasians Americans 40-49 0-2.0 0-2.0 0-2.5 50-59 0-3.0 0-4.0 0-3.5 60-69 0-4.0 0-4.5 0-4.5 70-79 0-5.0 0-5.5 0-6.5 Urinalysis Most recent to 1 oldest [Reference Range]: UA Color Yellow (10/10/14 10:10 AM) UA Appear Clear (10/10/14 10:10 AM) UA pH [5.0-8.0] 6.0 (10/10/14 10:10 AM) UA Leuk Est Negative [Negative] (10/10/14 10:10 AM) UA Nitrite Negative [Negative] (10/10/14 10:10 AM) UA Protein Negative [Negative] (10/10/14 10:10 AM) UA Glucose Negative [Negative] (10/10/14 10:10 AM) UA Ketones Negative [Negative] (10/10/14 10:10 AM) UA Urobilinogen 1.0 mg/dL [<1.0 mg/dL] (10/10/14 10:10 AM) UA Bili [Negative] Negative (10/10/14 10:10 AM) UA Blood [Negative] Negative (10/10/14 10:10 AM) UA Spec Grav 1.022 [1.003-1.030] (10/10/14 10:10 AM) Type Clean Catch (10/10/14 10:10 AM) Immunizations Vaccine Date Refusal Reason tetanus/diphth/pertuss [...]
--- OUTSIDE RECORDS SUMMARY | 2016-12-08 05:34 | XMS REPORT | Referral Summary ---
Author Author [facility] Organization [facility] Address Unknown Phone Unavailable Care Team Providers Care Tool Engine Lathe Set Up Operator Name Role Phone Rayray Bruno Primary Care Physician [phone] Encounter VC Date(s): 06/19/15 - 06/19/15 [facility] [address] [address] Discharge Diagnosis: Headache Discharge Diagnosis: Neck stiffness Discharge Diagnosis: Encounter for wound care Discharge Disposition: 01-Home or Self Care Attending Physician: Cesar Bruno MD Admitting Physician: Cesar Bruno MD Vital Signs Most recent to 1 oldest [Reference Range]: Peripheral Pulse 72 bpm Rate [60-100 bpm] (06/19/15 10:45 AM) Blood Pressure 100/60 mmHg [90-140/60-90 mmHg] (06/19/15 10:45 AM) SpO2 96 % (06/19/15 10:45 AM) Problem List Condition Effective Dates Status [...] Daily, # 30 tabs, 2 Refill(s), Pharmacy: [facility], 1 tabs Oral Daily Start Date: 10/17/15 Status: Ordered Nitrostat 0.4 mg sublingual tablet 1 tabs, SubLingual, q5min, as needed for chest pain, # 100 tabs, 0 Refill(s) Start Date: 04/16/14 Status: Ordered omeprazole 20 mg oral delayed release tablet 40 mg 2 tabs, Oral, Daily, X 90 days, # 180 tabs, 3 Refill(s), Pharmacy: [facility], 2 tabs Oral Daily,x90 days Start Date: 08/13/15 Stop Date: 08/07/16 Status: Ordered tamsulosin 0.4 mg oral capsule See Instructions, TAKE ONE CAPSULE BY MOUTH AT BEDTIME, # 90 Each, 3 Refill(s), Pharmacy: [facility], TAKE ONE CAPSULE BY MOUTH AT BEDTIME Start Date: 08/13/15 Status: Ordered venlafaxine 150 mg oral capsule, extended release See Instructions, TAKE ONE CAPSULE BY MOUTH EVERY DAY, # 90 Each, 3 Refill(s), Pharmacy: [facility], TAKE ONE CAPSULE BY MOUTH EVERY DAY Start Date: 08/13/15 Status: Ordered Zocor 20 mg oral tablet See Instructions, TAKE 1 TABLET BY MOUTH EVERY DAY IN THE EVENING, # 90 Each, 3 Refill(s), Pharmacy: [facility], TAKE 1 TABLET [...] Patient Education Author: Cesar Bruno MD Date: Family Medicine Wound Care Wound care helps [...] 11/13/2012 Document Reviewed: ExitCare Patient Information 2015 [employer]. This information is not intended to replace advice given to you by your health care provider. Make sure you discuss any questions you have with your health care provider. No follow up information was provided. Extracted from: Title: Office Visit Note Author: Cesar Bruno MD Date: 06/19/15 Assessment/Plan 1.Encounter for wound care we will apply a dressing to the area we applied Bactroban to the area a Telfa was placed over the area a gauze wrap was used to cover this will take about 3 more weeks before it heals. 2.Headache we will check a X ray today of the neck, showed a moderate amount of OA Ordered: XR Spine Cervical 2 or 3 Views Neck stiffness no meds prescribed will continue stretches Ordered: XR Spine Cervical 2 or 3 Views
--- OUTSIDE RECORDS SUMMARY | 2016-12-08 05:34 | XMS REPORT | Referral Summary ---
Author Author [facility] Organization [facility] Address Unknown Phone Unavailable Care Team Providers Care Profile Shaper Operator Name Role Phone Rayray Bruno Primary Care Physician [phone] Encounter VC Date(s): 06/19/15 - 06/19/15 [facility] [address] [address]- Discharge Diagnosis: Headache Discharge Diagnosis: Neck stiffness [...] BID, # 90 g, 2 Refill(s), Pharmacy: [email or web address] [id number] Start Date: 04/17/14 Stop Date: 07/16/19 Status: [...] Daily, # 180 tabs, 11 Refill(s), [id number], 2 tabs Oral Daily Start Date: 06/02/15 Status: Ordered tamsulosin 0.4 mg oral capsule See Instructions, TAKE ONE CAPSULE BY MOUTH AT BEDTIME, # 30 caps, 2 Refill(s), eRx: [facility]/pharmacy #[id number], TAKE ONE CAPSULE BY MOUTH AT BEDTIME Start Date: 05/01/15 Status: Ordered venlafaxine 150 mg oral capsule, extended release See Instructions, TAKE ONE CAPSULE BY MOUTH EVERY DAY, # 90 caps, 2 Refill(s), eRx: [facility]/pharmacy #[id number], TAKE ONE CAPSULE BY MOUTH EVERY DAY Start Date: 05/14/15 Status: Ordered Zocor 20 mg oral tablet See Instructions, TAKE 1 TABLET BY MOUTH EVERY DAY IN THE EVENING, # 90 tabs, 2 Refill(s), eRx: [facility]/pharmacy #[id number], TAKE 1 TABLET BY MOUTH EVERY DAY [...] 11/13/2012 Document Reviewed: ExitCare Patient Information 2015 [employer]. This information is not intended to replace advice given to you by your health care provider. Make sure you discuss any questions you have with your health care provider. No follow up information was provided.
[2016-12-08] MEDS ORDERED: PROPOFOL 200mg 20 ML IV ONE (06:11)
[2016-12-08] MEDS ORDERED: LIDOCAINE (2%) 100 MG/5 ML PF SYRINGE IV ONE (06:12)
[2016-12-08] MEDS ORDERED: FENTANYL 100mcg/2ml INJECTION ONE (06:13)
[2016-12-08] MEDS ORDERED: BUPIVACAINE 0.5% (5mg/ml) 30ml INJ SDV ONE (06:37)
[2016-12-08] MEDS ORDERED: EPINEPHRINE 1mg/ml TOPICAL SOLN 30ml ONE (06:49)
[2016-12-08] MEDS ORDERED: ROPIVACAINE 0.5% (5mg/ml) 30ml INJ ONE (06:49)
[2016-12-08] MEDS ORDERED: LIDOCAINE 1% (10mg/ml) 2ml SDV INJ ONE (07:00)
[2016-12-08] MEDS ORDERED: MIDAZOLAM 2mg/2ml INJECTION IV ONE (07:00)
[2016-12-08] MEDS ORDERED: LR 1,000 ML IV SCH (07:00)
[2016-12-08] MEDS ORDERED: ROCURONIUM 50mg/5ml INJECTION IV ONE (07:12)
[2016-12-08] MEDS ORDERED: EPHEDRINE SULFATE 50mg/ml INJECTION ONE ×2 (07:14→07:32)
[2016-12-08] MEDS ORDERED: SALINE FLUSH 10ml SYRINGE ONE ×2 (07:14→07:35)
--- NOTE | 2016-12-08 07:16 | ANESPD ---
Peripheral Nerve Blockade Physician: Toan Stewart MD Date: 12/08/16 Surgical Procedure: right shoulder Discussion Discussed risks/options/alternatives of anesthesia and questions answered. Patient consents. Nursing pain assessment noted. Block Start: 07:00 (time out) Block Stop: 07:05 Block Employed: Intrascalene, Single Injection Indication: post-operative pain Approach: right side confirmed Position: supine Patient: Consent, risks/benefits discussed, Informed, post block act. discussed Monitors: EKG, SpO2, NIBP IV Sedation: Yes Midazolam (mg): 1 Initial Vital Signs First Documented Vital Signs Date Time Temp Pulse Resp B/P Pulse Ox O2 Delivery O2 Flow Rate FiO2 12/08/16 05:48 98.1 76 13 117/58 96 Room Air Post Vital Signs Vital Signs Date Time Temp Pulse Resp B/P Pulse Ox O2 Delivery O2 Flow Rate FiO2 12/08/16 06:57 12 12/08/16 06:55 59 100/55 98 Room Air 12/08/16 05:48 98.1 Initial Pain Score: 6 Prep: chlorhexadine/ETOH, sterile technique Ultrasound Used?: Yes Nerve Simulator mA set at: 5 Abates at (mA): 0.4 Twitch at: 1 Hz Needle Depth: 1 Muscle Response forearm Muscle Response: Yes Parathesia/Pain: none Injectate Ropivacaine (%): 0.5 Ropivacaine (mL): 30 Was Epi 1:200,000 Used?: No Injection Injection made incrementally with constant monitoring and aspiration every [5] ml. FERNANDO CESAR CRNA Dec 08, 2016 07:16
[2016-12-08] MEDS ORDERED: CEFAZOLIN 1 GRAM INJECTION IV ONE (07:30)
[2016-12-08] MEDS ORDERED: PHENYLEPHRINE 10mg/ml INJECTION ONE (07:34)
[2016-12-08] MEDS ORDERED: GLYCOPYRROLATE 0.4mg/2ml INJECTION ONE (07:46)
[2016-12-08] MEDS ORDERED: SUGAMMADEX 200 MG/2 ML INJECTION IV ONE (09:12)
[2016-12-08] MEDS ORDERED: ONDANSETRON 4mg/2ml INJECTION IV PRN (09:15)
[2016-12-08] MEDS ORDERED: FENTANYL 100mcg/2ml INJECTION IV PRN (09:15)
[2016-12-08] MEDS ORDERED: OXYC1TAB8 PO (09:29)
[2016-12-08] MEDS ORDERED: ONDA4TAB4 PO (09:29)
--- NOTE | 2016-12-08 09:34 | PDPROCED ---
Immediate Operative Note DATE: 12/08/16 TIME: 09:31 Preop Diagnosis: RT shoulder rotator cuff tear, impingement Postop Diagnosis: Right shoulder rotator cuff tear, impingement Surgical Procedures: R Arthroscopic RCR (TABITHA) Surgeon: Terry Research Psychologist: ALONDRA Dvelin Anesthesia: General (plus regional block) Complications: none Estimated Blood Loss see anesthesia LESLIE MASON Dec 08, 2016 09:33
--- NOTE | 2016-12-08 09:38 | ANESPREOP ---
Anesthesia Record Date and Time DATE: 12/08/16 TIME: 09:37 Proposed Surgical Procedure RT SHOULDER SCOPE NPO since: mn Allergies: Coded Allergies: Sulfa (Sulfonamide Antibiotics) (Verified Allergy, Unknown, 12/07/16) Ht/Wt/BMI Height: 6 ' 4.00 " Weight: 82.500 kg BMI: 22.1 kg/m2 Vital Signs Date Time Temp Pulse Resp B/P Pulse Ox O2 Delivery O2 Flow Rate FiO2 12/08/16 07:10 59 16 108/60 97 Room Air 12/08/16 05:48 98.1 Medications Inpatient Medications Current Medications Medications (Trade) Dose Ordered Sig/Ginger Start Time Stop Time Status Last Admin Dose Admin Lactated Ringer's (Lactated Ringers) 1,000 ml @ 50 mls/hr Q20H 12/08/16 07:00 12/08/16 06:55 50 MLS/HR Fentanyl (Fentanyl) Fentanyl 25-50 mcg IVP every 5 minutes... Q5M PRN 12/08/16 09:15 12/08/16 11:15 Ondansetron HCl (Zofran) 4 mg O PRN 12/08/16 09:15 12/08/16 11:15 Aspirin (Aspirin) 325 Mg Tablet, 1 TAB PO DAILY, (Reported) Last Taken: on 11/23/16 Carvedilol (Coreg) 3.125 Mg Tablet, 3.125 MG PO BIDWM, (Reported) BEST WITH FOOD. Last Taken: on 12/08/16 0500 Diltiazem HCl (Diltiazem HCl) 120 Mg Tablet, 120 MG PO DAILY, (Reported) Last Taken: on 12/08/16 0500 Meloxicam (Meloxicam) 7.5 Mg Tablet, 7.5 MG PO QOD, (Reported) Last Taken: on 12/01/16 Multivitamin (Multi-Day Vitamins) 1 Each Tablet, 1 TAB PO DAILY, (Reported) Nitroglycerin (Nitroglycerin) 0.4 Mg Tab.subl, 0.4 MG SL for CHEST TIGHTNESS, ( Reported) Omeprazole (Omeprazole) 20 Mg Capsule.dr, 20 MG PO ACB, (Reported) Take 1 capsule, by mouth, one time a day (before breakfast). Last Taken: on 12/08/16 0500 Ondansetron HCl (Zofran) 4 Mg Tablet, 4 MG PO Q6H PRN for NAUSEA Oxycodone HCl/Acetaminophen (Percocet 5-325 mg Tablet) 5-325 Tablet, 5-10 MG PO Q4HR Simvastatin (Simvastatin) 10 Mg Tablet, 10 MG PO HS, (Reported) Take 1 tablet, by mouth, 1 time a day (at BEDTIME). Last Taken: on 12/07/16 2100 Tamsulosin HCl (Tamsulosin HCl) 0.4 Mg Cap.er.24h, 0.4 MG PO HS, (Reported) Take 1 capsule, by mouth, 1 time a day (at BEDTIME). Last Taken: on 12/07/16 1900 Venlafaxine HCl (Effexor Xr) 150 Mg Cap.er.24h, 150 MG PO WB, (Reported) Last Taken: on 12/01/16 Discontinued Medications Diltiazem HCl (Cardizem Cd) 240 Mg Cap.er.24h, 1 CAP PO DAILY, (Reported) Currently on Beta Adolfo: No Medical/Surgical History Anesthesia PMH: Reports: *Angina (PER H&P PATIENT DENIES), Arthritis (OA PER H& P), Cancer (SKIN CA BCC), Malignant Hyperthermia, Reflux, Thyroid Disease ( SUSPICIOUS NODULE REMOVED), Denies: *Diabetes, Anesthesia Reactions (NO AIRWAY ISSUES), Glaucoma, Sleep Apnea Smoking Status: Never smoker Use Chewing Tobacco?: No Second Hand Exposure: No Substance Use Type: does not use Alcohol Intake: none Past Surgical History Orthopedic Surgeries: Yes - ARM FX REPAIR, BILAT HAMMER TOE REPAIR Abdominal Surgeries: Genitourinary Surgeries: Cardiac Surgeries: Yes - HEART CATH PER H&P Endocrine Surgeries: Yes - PARTIAL THYROIDECTOMY Reproductive Surgeries: Neurological Surgeries: Ear Surgeries: Nose Surgeries: Throat Surgeries: Yes - TONSILS OUT AT AGE 5 Other Surgeries: Yes - HEART CATH PER H&P Anesthesia Adverse Reactions: FOUND none Family Hx of Anesthesia Advers: none Hx of Motion Sickness: No Physical Exam Respiratory: Bilat breath sounds equal, Lungs clear Cardiovascular: FOUND Regular rate, rhythm, FOUND No murmur Airway Assessment Mallampati Score: II TMD: 3 Fingerbreadths Neck Extension: Fair Teeth: Chipped Teeth/Crowns, Other (missing tooth) Overall Assessment: No Airway Concerns ASA: 3 Plan Anesthesia Plan: GETA Peripheral Nerve Block: Interscalene Block - RT Discussion Discussed risks/options/alternatives of anesthesia and questions answered. Patient consents. Nursing pain assessment noted. Present: Family Member Attestation Statement Prior to the delivery of any anesthetic medication, I examined the patient, developed the plan, obtained the patient's consent and discussed the risk and benefits of the procedure with the patient/guardian. FERNANDO CESAR CLASS B DRIVER Dec 08, 2016 09:38
--- NOTE | 2016-12-08 10:39 | ANESPO ---
Post-Op Note Date 12/08/16 Time: 10:38 Status Pt Participated in Evaluation: Pt participated in person Vital Signs Date Time Temp Pulse Resp B/P Pulse Ox O2 Delivery O2 Flow Rate FiO2 12/08/16 10:20 69 14 108/54 96 Room Air 12/08/16 10:05 97.5 12/08/16 09:45 1.00 Respiratory Function: Airway patent, Regular respirations Cardiovascular Function: Regular pulse Mental Status: Alert/oriented Pain Level Intensity: 0 Hydration: Taking po fluids Complications during Recovery None apparent Follow-Up Instructions Instructions Per Surgeon FERNANDO CESAR CRNA Dec 08, 2016 10:39
--- NOTE | 2016-12-09 08:11 | OPNOTEF ---
DATE OF SURGERY 12/08/2016 PREOPERATIVE DIAGNOSIS Right shoulder rotator cuff tear with impingement. POSTOPERATIVE DIAGNOSES 1. Right shoulder complex tear supraspinatus. 2. Right shoulder rotator cuff impingement. PROCEDURE 1. Right shoulder arthroscopic rotator cuff repair. 2. Right shoulder arthroscopic subacromial decompression. SURGEON Toan Stewart MD LIQUEFIED PETROLEUM GASFITTER Irwin Williamson PA-C ANESTHESIA General with regional block. FLUIDS Please refer to Anesthesia chart. EBL Minimal. TOURNIQUET None used. COMPLICATIONS None. CONDITION Stable in recovery room. IMPLANTS 1. [employer] 5.0-mm TwinFix anchor x 2. 2. [employer] Multifix S anchor x 2. DESCRIPTION OF PROCEDURE The patient was identified in the preoperative holding area. The operative extremity was identified and appropriately marked. Risks, benefits, alternatives and potential complications were discussed and informed consent was obtained. Anesthesia placed a regional nerve block. The patient was then taken to the operating theatre and placed supine on the operating table. Appropriate cardiorespiratory monitors were applied. General anesthesia was induced. The patient was positioned in a seated beach-chair position with all bony prominences well padded. Head and neck were secured in a safe position. The right upper extremity was sterilely prepped and draped in usual fashion. Surgical time-out was performed, confirmed with myself, the systems technologist and circulating nurse. Preoperative antibiotics were given. Examination under anesthesia revealed normal range of motion of the right shoulder with no evidence of instability. A standard posterior arthroscopic portal was established. The arthroscope was inserted and the glenohumeral joint was insufflated with saline. Needle localization was utilized to establish an anterior portal in the rotator interval and diagnostic examination ensued. Glenohumeral articular cartilage was well maintained. Anterior, inferior, posterior and superior coby were intact. Long head biceps anchor was normal. Long head biceps tendon was intact. Subscapularis was normal and intact. Inferior axillary recess was free of loose bodies or debris. Teres minor and posterior margin of the infraspinatus appeared normal from the articular side. There was a thin veil of tissue remaining on the articular side of the supraspinatus. This appeared quite friable and thin. The arthroscope was withdrawn and placed into the subacromial space. A lateral portal was established. There was noted to be a large delaminated portion of the supraspinatus which was reflected posteriorly and retracted somewhat medially. The aforementioned thin veil of articular-side tendon was evident. Utilizing a shaver this was easily debrided, creating a full-thickness complete supraspinatus tear. Note was made that approximately 4- 5 mm worth of tendon were left at the anterior lateral margin of the footprint indicative of a partial intrasubstance tear as well. The footprint was debrided to a bleeding cortical surface. Mobility of the tendon was ascertained with an arthroscopic grasper. We noted that the undersurface portion of the tendon which had been released was able to be reduced to nearly the midportion of the footprint. The reflected bursal-sided fibers were reduced and able to be pulled over the top of the others extending slightly more laterally. It was elected to proceed with fixation of this rotator cuff in a transosseous equivalent type fashion. Two anchors were placed along the medial margin of the footprint just lateral to the articular cartilage margin. The sutures were passed in a horizontal mattress configuration from anterior to posterior, first through this articular-sided tendon slip. Following this, second stage passing was performed to the same tendon through the reflected bursal-sided fibers through the area of delamination, pulling this and reducing it anteriorly and laterally. One set of sutures was only passed through the articular side to use these to help reduce the articular-sided portion of the tendon to the footprint. These sutures were tied arthroscopically, alleviating tension on the remaining sutures and these suture tails were cut. The remaining sutures which had been passed through both leaves of the tendon were then tied arthroscopically in a horizontal mattress configuration. This helped to reduce the entire tendon to about the midportion of the footprint, leaving some exposed bone laterally. This bone was debrided and multiple microfracture holes were placed to allow for bone marrow elements and aid in healing. Sutures were then passed through Multifix S anchors, one suture limb from each knot through each anchor. The posterior anchor was placed first in line with the posterior margin of the tear, tensioning the sutures in this transosseous equivalent type repair. The anchor was inserted while tensioning and the suture tails were cut. This was then repeated with the remaining suture limbs through a more anteriorly placed anchor again on the lateral margin of the greater tuberosity. These suture tails were then cut. The shoulder was then taken through passive range of motion visualizing arthroscopically, noting good stability of the tendon repair. Probing revealed the same. The CA ligament was markedly frayed. Preoperative imaging had shown an anterolateral subacromial spur. This portion of the CA ligament was released and a 5.5 bur was inserted and an acromioplasty was performed to convert this to a type 1 flat acromion. The shoulder was then copiously lavaged, irrigated and drained. All arthroscopic instruments were removed. Portals were closed with nylon sutures. Sterile dressings were applied followed by an abduction sling. The patient was awakened from anesthesia and taken to the recovery room in stable and satisfactory condition. PELON
== END 2016-12-08 10:55 | disposition home or self-care (01) ==
LOC: NSC 05:29
PROVIDERS: ATTEND Orthopaedic Surgery
DX: M75.121 Complete rotator cuff tear or rupture of right shoulder, not specified as traumatic (principal); M75.41 Impingement syndrome of right shoulder; I25.10 Atherosclerotic heart disease of native coronary artery without angina pectoris; E78.00 Pure hypercholesterolemia, unspecified; M19.90 Unspecified osteoarthritis, unspecified site; Z79.82 Long term (current) use of aspirin; Z79.1 Long term (current) use of non-steroidal anti-inflammatories (NSAID); Z79.899 Other long term (current) drug therapy; Z88.2 Allergy status to sulfonamides
CPT/HCPCS: 29826; 29827; A9270; C1713; J0330; J0690; J2250; J2370; J2704; J2795; J3010; J7120